=== PATIENT | female | born 1965 | race Caucasian/White ===

== ENCOUNTER 2022-03-27 11:50 | Outpatient (CLI) | payer MEDICAID | END 2022-03-27 11:51 | disposition critical access hospital (66) | LOC: EMS 11:50 | DX: R07.9 Chest pain, unspecified (principal) | CPT/HCPCS: A0425; A0427; A0999 ==

== ENCOUNTER 2022-03-27 12:08 | Emergency (ER) | payer MEDICAID ==
--- NOTE | 2022-03-27 12:25 | ED Physician Documentation ---
History of Present Illness - Stated complaint Stated Complaint: CP - Additonal information Additional information: 57-year-old female presents emergency department for evaluation of 1 week intermittent right-sided chest pain. She states that it comes at random times. Is not necessarily exertional. She noticed it very strongly this morning when she bent over to pick something up. She often has a tingling in her right arm and in her jaw when she has the sensation. Patient denies any previous cardiac history though she is obese, has a history of hypertension and type 2 diabetes. She also is a 2 pack/day smoker. 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 She is followed by primary care through [facility]. States that her diabetes is well managed. Review of Systems Constitutional: denies: Fever, Chills Nose: reports: Reviewed and negative Throat: reports: Reviewed and negative Cardiac: reports: Chest pain / pressure, Palpitations. denies: Pedal edema, Calf pain Respiratory: reports: Reviewed and negative GI: reports: Reviewed and negative : reports: Reviewed and negative Skin: reports: Reviewed and negative PD PAST MEDICAL HISTORY - Allergies Allergies/Adverse Reactions: Allergies Allergy/AdvReac Type Severity Reaction Status Date / Time No Known Drug Allergies Allergy Verified 03/27/22 12:15 PD ED PE NORMAL - General General: Alert and oriented X 3, No acute distress. No: Well developed/nourished (Morbidly obese) - HEENT HEENT: Atraumatic, Moist mucous membranes - Neck Neck: Supple, no meningeal sign, No adenopathy - Cardiac Cardiac: RRR, No murmur, Strong equal pulses - Respiratory Respiratory: No respiratory distress. 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 Eye Opening: Spontaneous Motor: Obeys Commands Verbal: Oriented GCS Score: 15 - Psych Psych: Normal mood Results - Vitals Vitals: Vital Signs - 24 hr 03/27/22 03/27/22 12:16 12:51 Temperature 37.9 C Heart Rate 101 H 98 Respiratory 18 19 Rate Blood Pressure 151/77 H 140/98 H O2 Saturation 92 93 Oxygen O2 Source Room air - EKG (time done) 1238 Rate: Rate (enter#) (100) Rhythm: NSR [place]: Normal Intervals: Normal [place] QRS: Normal Ischemia: Normal ST segments Compare to prior EKG: Old EKG unavailable Computer interpretation: Agree with computer - Labs Labs: Laboratory Tests 03/27/22 03/27/22 03/27/22 12:25 12:25 12:25 WBC 11.8 H RBC 5.41 H Hgb 14.9 Hct 47.3 H MCV 87.4 MCH 27.5 MCHC 31.5 L RDW 14.5 Plt Count 316 MPV 8.2 Neut # (Auto) 6.9 H Lymph # (Auto) 3.7 H [place] # (Auto) 0.9 Eos # (Auto) 0.2 Baso # (Auto) 0.1 Absolute Nucleated RBC 0.00 Nucleated RBC % 0.0 Sodium 139 Potassium 3.8 Chloride 100 L Carbon Dioxide 29 Anion Gap 10.0 BUN 18 Creatinine 0.7 Estimated GFR (MDRD) 87 L Glucose 105 H POC Whole Bld Glucose Calcium 9.3 Total Bilirubin 0.4 AST 20 ALT 33 Alkaline Phosphatase 102 Troponin I High Sens 4.4 Total Protein 7.6 Albumin 3.7 Globulin 3.9 Albumin/Globulin Ratio 0.9 L Lipase 36 03/27/22 13:00 WBC RBC Hgb Hct MCV MCH MCHC RDW Plt Count MPV Neut # (Auto) Lymph # (Auto) [place] # (Auto) Eos # (Auto) Baso # (Auto) Absolute Nucleated RBC Nucleated RBC % Sodium Potassium Chloride Carbon Dioxide Anion Gap BUN Creatinine Estimated GFR (MDRD) Glucose POC Whole Bld Glucose 85 Calcium Total Bilirubin AST ALT Alkaline Phosphatase Troponin I High Sens Total Protein Albumin Globulin Albumin/Globulin Ratio Lipase - Rads (name of study) cxr Radiology: Final report received (No acute cardiopulmonary process) PD MEDICAL DECISION MAKING - ED course Complexity details: reviewed results, re-evaluated patient, considered differential, d/w patient ED course: 57-year-old female presents emergency department for evaluation of intermittent chest pain has been present for about the last week. Mainly right-sided with radiation to the arm and jaw. She describes it as a sharp sensation. She reports that she has been under an inordinate amount of stress over the last week. However she has significant cardiac risk factors include morbid obesity, hypertension, diabetes as well as a 2 pack/day tobacco habit. Her EKG today in the emergency department was nonischemic. High-sensitivity troponin was negative. Her CBC and electrolytes were without acute worrisome findings. By Wells criteria she is low risk for PE thus we deferred other testing or imaging associated with this. Room air saturations are 99%. I discussed with patient that given her significant risk factors it would be important to follow-up closely with her primary care doctor to obtain referral for outpatient cardiac testing that could include a stress test and/or echocardiogram. Emergent return precautions as well as lifestyle modifications were discussed Departure - Departure Disposition: Home, Self Care Clinical Impression: Chest pain Qualifiers: Chest pain type: unspecified Qualified Code(s): R07.9 - Chest pain, unspecified Condition: Stable Record reviewed to determine appropriate education?: Yes Instructions: ED Heart Disease Risk Factors, ED Chest Pain Atypical Unkn Cause Comments: Terri you are seen today in the emergency department because intermittently over the last week you been having some right-sided chest pain that you described as sharp as well as some tingling in your arm. Today in the emergency department your CBC and electrolytes as well as your EKG and chest x-ray did not show any worrisome findings. However you do have some significant risk factors for coronary artery disease and I would make the recommendation that your primary care doctor make an urgent referral to cardiology to obtain a stress test at a minimum. You think that stress could be a cause of your chest pain and though anxiety can cause chest pain that is typically a diagnosis of exclusion. It does not appear that you have any broken ribs or rib strain. There is nothing to suggest a pleural effusion on your chest x-ray. Continue to take your usual prescribed medications. If at any point you develop sudden severe or different chest pain, have any fainting episodes uncontrolled nausea or vomiting then you should return immediately to the ER for second evaluation.
[2022-03-27 12:31] LABS: BASOPHILS # (AUTO) 0.1 10^3/uL (0.0-0.1); BASOPHILS % (AUTO) 0.7 %; EOSINOPHILS # (AUTO) 0.2 10^3/uL (0.0-0.7); EOSINOPHILS % (AUTO) 1.8 %; HCT - HEMATOCRIT 47.3 % (37.0-47.0); HGB - HEMOGLOBIN 14.9 g/dL (12.0-16.0); LYMPHOCYTES # (AUTO) 3.7 10^3/uL (1.5-3.5); LYMPHOCYTES % (AUTO) 31.2 %; MEAN CORPUSCULAR HEMOGLOBIN 27.5 pg (27.0-31.0); MEAN CORPUSCULAR HGB CONC 31.5 g/dL (32.0-36.0); MEAN CORPUSCULAR VOLUME 87.4 fL (81.0-99.0); MEAN PLATELET VOLUME 8.2 fL (7.9-10.8); MONOCYTES # (AUTO) 0.9 10^3/uL (0.0-1.0); MONOCYTES % (AUTO) 7.2 %; NEUTROPHILS # (AUTO) 6.9 10^3/uL (1.5-6.6); NEUTROPHILS % (AUTO) 58.7 %; PLT - PLATELET COUNT 316 10^3/uL (130-450); RED BLOOD COUNT 5.41 10^6/uL (4.20-5.40); RED CELL DISTRIBUTION WIDTH 14.5 % (12.0-15.0); WHITE BLOOD COUNT 11.8 x10^3/uL (4.8-10.8)
--- NOTE | 2022-03-27 12:48 | XRAY Report ---
PROCEDURE: Chest 1 View X-Ray INDICATIONS: Chest Pain TECHNIQUE: One view of the chest was acquired. COMPARISON: None FINDINGS: Surgical changes and devices: None. Lungs and pleura: No pleural effusions or pneumothorax. Lungs are clear. Mediastinum: Mediastinal contours appear normal. Heart size is normal. Bones and chest wall: No suspicious bony lesions. Overlying soft tissues appear unremarkable. IMPRESSION: No acute pulmonary process. Reviewed by: Zaida Gibson MD on 03/27/2022 12:47 PM PDT Approved by: Zaida Gibson MD on 03/27/2022 12:47 PM PDT Station ID: [id number]
[2022-03-27 12:51] VITALS: BP 140/98
[2022-03-27 12:55] LABS: ALBUMIN 3.7 g/dL (3.2-5.5); ALBUMIN/GLOBULIN RATIO 0.9 (1.0-2.2); BILIRUBIN,TOTAL 0.4 mg/dL (0.2-1.0); CREATININE 0.7 mg/dL (0.4-1.0); TOTAL PROTEIN 7.6 g/dL (6.7-8.2)
[2022-03-27 13:18] LABS: CALCIUM 9.3 mg/dL (8.5-10.3); POTASSIUM 3.8 mmol/L (3.5-5.0)
== END 2022-03-27 14:02 | disposition home or self-care (01) ==
LOC: ED 12:08
DX: R07.9 Chest pain, unspecified (principal)
CPT/HCPCS: 36415; 80053; 83690; 84484; 85025; 93005; 99283; 99284

== ENCOUNTER 2023-07-20 13:30 | Outpatient (CLI) | payer BC ==
[2023-07-20 17:47] LABS: BASOPHILS # (AUTO) 0.1 10^3/uL (0.0-0.1); BASOPHILS % (AUTO) 0.6 %; EOSINOPHILS # (AUTO) 0.1 10^3/uL (0.0-0.7); EOSINOPHILS % (AUTO) 1.2 %; HCT - HEMATOCRIT 47.4 % (37.0-47.0); HGB - HEMOGLOBIN 14.7 g/dL (12.0-16.0); LYMPHOCYTES # (AUTO) 2.8 10^3/uL (1.5-3.5); MEAN CORPUSCULAR HEMOGLOBIN 27.5 pg (27.0-31.0); MEAN CORPUSCULAR VOLUME 88.6 fL (81.0-99.0); MEAN PLATELET VOLUME 8.7 fL (7.9-10.8); MONOCYTES # (AUTO) 0.7 10^3/uL (0.0-1.0); MONOCYTES % (AUTO) 6.1 %; NEUTROPHILS # (AUTO) 7.5 10^3/uL (1.5-6.6); NEUTROPHILS % (AUTO) 66.4 %; PLT - PLATELET COUNT 337 10^3/uL (130-450); RED BLOOD COUNT 5.35 10^6/uL (4.20-5.40); WHITE BLOOD COUNT 11.3 x10^3/uL (4.8-10.8)
[2023-07-20 18:07] LABS: CRP - C-REACTIVE PROTEIN 1.1 mg/dL (<0.5); URIC ACID 4.9 mg/dL (2.3-6.6)
== END 2023-07-20 13:45 | disposition home or self-care (01) ==
LOC: LAB.N 13:30
PROVIDERS: ATTEND Physician Assistant Medical
DX: M25.521 Pain in right elbow (principal)
CPT/HCPCS: 36415; 84550; 85025; 86140

== ENCOUNTER 2023-11-27 19:48 | Emergency (ER) | payer BC ==
[2023-11-27 20:06] VITALS: BP 140/85; O2SAT 95
--- NOTE | 2023-11-27 20:06 | ED Physician Documentation ---
History of Present Illness - Stated complaint Stated Complaint: RT LEG SWELLING - Chief complaint Chief Complaint: Ext Problem - History obtained from History obtained from: Patient - Additonal information Additional information: 58-year-old woman with diabetes and COPD has had a weeks worth of increasing pain redness and swelling about the right ankle. There was no injury. She said she went to her doctor and they did labs which were only notable for an elevated A1c around 8. There was no specific diagnosis given but she said it is much redder now than it was then. 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: No - Immunizations Immunizations are current?: Yes - POLST Patient has POLST: No PD ED PE NORMAL - Vitals Vital signs reviewed: Yes - General General: Alert and oriented X 3, No acute distress - Derm Derm: Normal color, Warm and dry - Extremities Extremities: Other (She has cellulitis around the right ankle. No crepitance. No limited range of motion at the ankle. Good pedal pulses.) - Neuro Neuro: Alert and oriented X 3, Normal speech Results - Vitals Vitals: Vital Signs - 24 hr 11/27/23 19:52 Temperature 36.1 C L Heart Rate 105 H Respiratory 16 Rate Blood Pressure 140/85 H O2 Saturation 95 Oxygen O2 Source Room air PD Medical Decision Making - ED course ED course: I recommended an ultrasound to rule out blood clot although it looks more like cellulitis. She declined and would just like to start antibiotics. Departure - Departure Disposition: 01 Home, Self Care Clinical Impression: Cellulitis Qualifiers: Site of cellulitis: extremity Site of cellulitis of extremity: lower extremity Laterality: right Qualified Code(s): L03.115 - Cellulitis of right lower limb Condition: Good Record reviewed to determine appropriate education?: Yes Instructions: Cellulitis Dc Prescriptions: cephALEXin [Keflex] 500 mg PO Q6H #28 cap Comments: I sent your prescription electronically to the [facility] in [place]. Call your doctor to arrange a follow-up appointment, make the next available appointment. In the interim, return anytime if worse or if new symptoms develop.
[2023-11-27] MEDS: CEPHALEXIN 250 MG Prepack 8 CAP BOTTLE PO STA (20:18)
== END 2023-11-27 20:27 | disposition home or self-care (01) ==
LOC: ED 19:48
DX: L03.115 Cellulitis of right lower limb (principal)
CPT/HCPCS: 99282; 99283

== ENCOUNTER 2023-12-30 22:14 | Outpatient (CLI) | payer BC | END 2023-12-30 22:15 | disposition critical access hospital (66) | LOC: EMS 22:14 | DX: F41.9 Anxiety disorder, unspecified (principal); R06.02 Shortness of breath | CPT/HCPCS: A0425; A0429 ==

== ENCOUNTER 2023-12-30 22:32 | Emergency (ER) | payer BC ==
--- NOTE | 2023-12-30 22:57 | ED Physician Documentation ---
PD HPI CHEST PAIN - Stated complaint Stated Complaint: SOA/ANXIETY - Chief complaint Chief Complaint: Cardiac - History obtained from History obtained from: Patient - History of Present Illness Timing - onset: How many hours ago (has had pain right parastenal area intermittent through day and then worse/consistent the past few hours.), Today Timing - onset during: Rest, Light activity Timing - duration: Hours Timing - details: Gradual onset, Still present, Waxing and waning Quality: Sharp, Stabbing, Pain Location: Substernal, Right chest Radiation: No: Neck, Back, Abdominal Improved by: No: Rest Worsened by: Inspiration, Movement, Palpation Associated symptoms: Nausea, Cough (baseline smoking cough which pt states has not changed recently.). No: Shortness of air, Vomiting Review of Systems Constitutional: denies: Fever Nose: denies: Rhinorrhea / runny nose, Congestion Throat: denies: Sore throat Cardiac: reports: Chest pain / pressure (sharp pain focally to right parasternal area.). 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 : None HEENT: None Psych: Bipolar disorder Musculoskeletal: None Derm: None - Past Surgical History Past Surgical History: Yes General: Cholecystectomy - Present Medications Home Medications: Ambulatory Orders Medication Instructions Recorded Confirmed Citalopram [CeleXA] 40 mg PO DAILY 12/30/23 12/30/23 Divalproex ER [Depakote ER] 750 mg PO BID 12/30/23 12/30/23 hydroCHLOROthiazide [Hydrodiuril] 25 mg PO HS 12/30/23 12/30/23 lamoTRIgine [Lamictal] 150 mg PO HS 12/30/23 12/30/23 lisinopriL [Lisinopril] 10 mg PO HS 12/30/23 12/30/23 metFORMIN [Glucophage] 1,000 mg PO BIDWM 12/30/23 12/30/23 HYDROcod/ACETAM 5/325 [[place] 5/325] 1 ea PO Q6H PRN #18 tablet 12/31/23 Meloxicam [Mobic] 7.5 mg PO BID 15 Days #30 tablet 12/31/23 - Allergies Allergies/Adverse Reactions: Allergies Allergy/AdvReac Type Severity Reaction Status Date / Time No Known Drug Allergies Allergy Verified 12/30/23 22:38 - Social History Does the pt smoke?: Yes Smoking Status: Current every day smoker Does the pt drink ETOH?: No Does the pt have substance abuse?: No - Immunizations Immunizations are current?: Yes - POLST Patient has POLST: No PD ED PE NORMAL - Vitals Vital signs reviewed: Yes - General General: Alert and oriented X 3, Well developed/nourished, Other (anxious more than in pain. ) - Neck Neck: Supple, no meningeal sign, No adenopathy - Cardiac Cardiac: RRR, No murmur - Respiratory Respiratory: No respiratory distress, Other (right parasternal chest tenderness without rash nor sores. ). No: Clear bilaterally (diffuse mild wheezing without work of breathing. Pt states she would use her MDI with this. Offered MDI/neb treatment here. ) - Abdomen Abdomen: Soft, Non tender - Derm Derm: Normal color, Warm and dry - Extremities Extremities: No tenderness to palpate, Normal ROM s pain, No edema, No calf tenderness / cord - Neuro Neuro: Alert and oriented X 3, No motor deficit, Normal speech Results - Vitals Vitals: Vital Signs - 24 hr 12/30/23 12/31/23 22:39 00:24 Temperature 36.8 C 36.3 C L Heart Rate 100 88 Respiratory 16 16 Rate Blood Pressure 154/79 H 147/69 H O2 Saturation 91 L 93 Oxygen O2 Source Room air - EKG (time done) 22:53 EKG releavant findings:: EKG personally interpreted by author of this note. Relevant findings are: Rate: Rate (enter#) (105) Rhythm: Sinus tachycardia [place]: Normal Intervals: Normal DC QRS: Normal Ischemia: Normal ST segments. No: ST elevation c/w ischemia, ST depression Compare to prior EKG: Old EKG unavailable - Labs Labs: Laboratory Tests 12/30/23 12/30/23 22:53 22:53 WBC 12.9 H RBC 5.59 H Hgb 15.3 Hct 49.1 H MCV 87.8 MCH 27.4 MCHC 31.2 L RDW 14.0 Plt Count 320 MPV 8.7 Neut # (Auto) 8.4 H Lymph # (Auto) 3.4 [place] # (Auto) 0.9 Eos # (Auto) 0.2 Baso # (Auto) 0.1 Absolute Nucleated RBC 0.00 Nucleated RBC % 0.0 Sodium 134 L Potassium 3.7 Chloride 95 L Carbon Dioxide 31 Anion Gap 8.0 BUN 16 Creatinine 0.9 Estimated GFR (MDRD) 65 L Glucose 138 H Calcium 9.9 Total Bilirubin 0.5 AST 40 ALT 56 Alkaline Phosphatase 91 Troponin I High Sens 4.4 Total Protein 7.8 Albumin 4.1 Globulin 3.7 Albumin/Globulin Ratio 1.1 Lipase 18 - Rads (name of study) chest xray Relevant Findings:: Prelim report reviewed (no acute process), EMP independent interpretation of test PD Medical Decision Making - ED course Complexity details: reviewed results (ECG, CXR, Troponin re negative. PERC negative. Has chest wall tenderness at costochondral area where she is having pain. I feel low risk for ACS or other more serious process. Can treat with NSAIDs. ), re-evaluated patient (pt was to get albuterol and NSAID, pain med, but she got anxious to leave and declined them. Suspicion she needed to go out for a cigarette but she did not say. She was at discharging time and got Rx/instructions, just left before starting meds. ), considered differential (focal pain right chestwall with tenderness. Can get basic ECG, CXR, labs, and trop. If negative, with pain having been several hours, would presume stop workup. Does not sound exertional/ischemic in that sense of supporting need for stress testing, etc. ), d/w patient Departure - Departure Disposition: 01 Home, Self Care Clinical Impression: Anterior chest wall pain, COPD (chronic obstructive pulmonary disease), Wheezing, Edema of both legs Condition: Stable Record reviewed to determine appropriate education?: Yes Instructions: ED Chest Pain Costochondritis, ED Edema Legs Bilateral Prescriptions: Meloxicam [Mobic] 7.5 mg PO BID 15 Days #30 tablet HYDROcod/ACETAM 5/325 [[place] 5/325] 1 ea PO Q6H PRN #18 tablet PRN Reason: Pain Comments: Your chest x-ray does not show any pneumonia, fluid around the lungs, collapsed lung/pneumothorax nor any obvious tumors. Your EKG does not show any injury pattern and a blood test called troponin which is a marker for heart muscle injury is negative. You do have tenderness to the chest wall in that area which would suggest musculoskeletal cause for the pain. You can get inflammation through the cartilage for various reasons. You were wheezy here and I would certainly suggest you continuing your albuterol inhaler regularly 4 times a day for several days and as needed for wheezing. We can prescribe you a anti-inflammatory called meloxicam which is only needed to be taken twice daily so is a little bit easier. Take it with food to help with the pains in the chest and would help in the knees as well. To that add Tylenol/acetaminophen 500 to 650 mg 4 times daily to help with pain as well. I did prescribe a short-term prescription for hydrocodone pain medicine to use periodically if needed for worse pain. Regarding swelling in your feet and pain in your foot, I would suggest elevating your legs and feet periodically through the day in the future, and using some mild compression socks that come up just below the knees to help with swelling generally. I sent your prescriptions to your preferred pharmacy. I am prescribing a short course of narcotic pain medication for you. These are potentially dangerous and addictive medications that should be used carefully. These medications may constipate you. Take an [id number] stool softener such as docusate twice daily with plenty of water while taking these medications. If you go 24 hours without a bowel movement, take [id number] MiraLAX, per package instructions. Do not drink or drive while taking these medications. If you received narcotic or sedating medications while in the emergency department do not drive for 24 hours. Store this medication in a safe, secure place and out of reach of children. It is a violation of federal law to give or sell this medication to another person or to use in a manner other than prescribed. The ED will not refill narcotic prescriptions, including prescriptions lost or stolen. You can dispose of unwanted medications at the [facility]'s office or at several pharmacies such as [facility]. Forms: PCP List Discharge Date/Time: 12/31/23 00:24
[2023-12-30 23:08] LABS: BASOPHILS # (AUTO) 0.1 10^3/uL (0.0-0.1); BASOPHILS % (AUTO) 0.4 %; EOSINOPHILS # (AUTO) 0.2 10^3/uL (0.0-0.7); EOSINOPHILS % (AUTO) 1.3 %; HCT - HEMATOCRIT 49.1 % (37.0-47.0); HGB - HEMOGLOBIN 15.3 g/dL (12.0-16.0); LYMPHOCYTES # (AUTO) 3.4 10^3/uL (1.5-3.5); LYMPHOCYTES % (AUTO) 25.9 %; MEAN CORPUSCULAR HEMOGLOBIN 27.4 pg (27.0-31.0); MEAN CORPUSCULAR HGB CONC 31.2 g/dL (32.0-36.0); MEAN CORPUSCULAR VOLUME 87.8 fL (81.0-99.0); MEAN PLATELET VOLUME 8.7 fL (7.9-10.8); MONOCYTES # (AUTO) 0.9 10^3/uL (0.0-1.0); MONOCYTES % (AUTO) 6.7 %; NEUTROPHILS # (AUTO) 8.4 10^3/uL (1.5-6.6); PLT - PLATELET COUNT 320 10^3/uL (130-450); RED BLOOD COUNT 5.59 10^6/uL (4.20-5.40); WHITE BLOOD COUNT 12.9 x10^3/uL (4.8-10.8)
[2023-12-30 23:27] LABS: ALBUMIN 4.1 g/dL (3.2-5.5); ALBUMIN/GLOBULIN RATIO 1.1 (1.0-2.2); BILIRUBIN,TOTAL 0.5 mg/dL (0.2-1.0); CALCIUM 9.9 mg/dL (8.5-10.3); CREATININE 0.9 mg/dL (0.6-1.3); POTASSIUM 3.7 mmol/L (3.5-4.5); TOTAL PROTEIN 7.8 g/dL (6.4-8.9)
[2023-12-30 23:29] LABS: TROPONIN I HIGH SENSITIVITY 4.4 ng/L (2.3-14.8)
[2023-12-31] MEDS ORDERED: ALBUTEROL NEB 2.5 MG/3 ML INH ONE (00:04)
[2023-12-31] MEDS: ALBUTEROL NEB 2.5 MG/3 ML INH STA (00:15)
[2023-12-31] MEDS: dexAMETHasone 4 MG TABLET PO STA (00:17)
[2023-12-31] MEDS: KETOROLAC 15 MG/ML VIAL IVP STA (00:17)
[2023-12-31] MEDS: HYDROmorphone 0.5 MG/0.5 ML SYRINGE IVP STA (00:23)
--- NOTE | 2023-12-31 00:28 | XRAY Report ---
PROCEDURE: Chest 1V INDICATIONS: Chest Pain TECHNIQUE: One view of the chest was acquired. COMPARISON: CXR 03/27/2022. FINDINGS: Surgical changes and devices: None. Lungs and pleura: No pleural effusions or pneumothorax. Lungs are clear. Mediastinum: Mediastinal contours appear normal. Heart size is normal. Bones and chest wall: No suspicious bony lesions. Overlying soft tissues appear unremarkable. IMPRESSION: No acute cardiopulmonary process. Reviewed by: Jamie Ocasio MD on 12/31/2023 12:27 AM PDT Approved by: Jamie Ocasio MD on 12/31/2023 12:27 AM PDT Station ID: [id number]
[2023-12-31 00:39] VITALS: BP 147/69; O2SAT 93
== END 2023-12-31 00:24 | disposition home or self-care (01) ==
LOC: EDUNIT# → ED 22:32
DX: J44.9 Chronic obstructive pulmonary disease, unspecified (principal); R07.89 Other chest pain; R06.2 Wheezing; R60.0 Localized edema; I10 Essential (primary) hypertension; E78.00 Pure hypercholesterolemia, unspecified; E11.9 Type 2 diabetes mellitus without complications; F17.200 Nicotine dependence, unspecified, uncomplicated; Z79.84 Long term (current) use of oral hypoglycemic drugs; Z79.899 Other long term (current) drug therapy
CPT/HCPCS: 36415; 71045; 80053; 83690; 84484; 85025; 93005; 96374; 99284; J8540

== ENCOUNTER 2024-11-06 19:45 | Inpatient (IN) ==
--- NOTE | 2024-11-06 19:58 | ED Physician Documentation ---
History of Present Illness Stated complaint Stated Complaint: RESP DISTRESS - INTUBATED Chief complaint Chief Complaint: Critical Care History obtained from History obtained from: EMS Additonal information Additional information: History is obtained from EMS as the patient was intubated in the field. History of COPD. Reportedly increasing shortness of breath x 2 to 3 days. EMS states that she did not respond to nebulizer treatment with them. She was unable to speak, therefore they elected to intubate the patient in the field. Used rocuronium and ketamine. EMS states no reported history of fevers or recent illnesses. They are unclear if she still smokes, last visit she was smoking 2 packs a day. Review of Systems Status of ROS: unobtainable due to endotracheal tube Meds/Allgy Home Medications Ambulatory Orders Medication Instructions Recorded Confirmed divalproex 250 mg tablet,extended 250 mg PO QPM 11/07/24 release 24 hr hydrochlorothiazide 25 mg tablet 25 mg PO QPM 12/30/23 11/07/24 lamotrigine 150 mg tablet 150 mg PO QPM 12/30/2311/07 (Lamictal) lisinopril 10 mg tablet 10 mg PO QPM 12/30/23 metformin 500 mg tablet 1,000 mg PO BIDWM 12/30/23 0 11/07/24 albuterol sulfate 90 mcg/actuation 2 puff inhalation Q 4H PRN 11/07/24 11/07/24 aerosol inhaler shortness of breath or wheez ing citalopram 40 mg tablet 40 mg PO QPM 11/07/24 divalproex 500 mg tablet,extended 500 mg PO QPM 11/07/24 release 24 hr gabapentin 300 mg capsule 300 mg PO BID PRN pain 11/0711/07/24 glipizide 10 mg tablet, extended 10 mg PO QPM 11/07/24 11/07/24 release 24 hr tolterodine 2 mg capsule,extended 2 mg PO QPM 11/07/24 11/07/24 release 24 hr Allergies Allergies Allergy/AdvReac Type Severity Reaction Status Date / Time No Known Drug Allergies Allergy Verified 11/06/24 19:53 PFSH Active Problems All Active Problems (Updated 11/06/24 @ 22:13 by Kvng Marinelli DNP) UTI (urinary tract infection) (Acute) Acute and chronic respiratory failure with hypercapnia (Acute) Endotracheally intubated (Acute) Respiratory failure (Acute) COPD exacerbation (Acute) Medical History Medical History (Updated 11/06/24 @ 22:13 by Kvng Marinelli DNP) Diabetes Social History Social History Smoking Status: Current every day smoker Do you vape?: No Relationship: Child History of Abuse: No POLST Patient has POLST: No Exam Exam Vital Signs: Vital Signs x48h Temp Pulse Resp BP Pulse Ox 11/06/24 19:45 35.7 C L 85 16 89/56 L 98 Constitutional Intubated, paralyzed HENMT normocephalic, head/scalp atraumatic and oropharynx normal moist mucous membranes Neck/C-Spine visual inspection normal and trachea midline Respiratory Wheezing bilaterally, equal Cardiovascular normal heart rate noted and regular rhythm noted Gastrointestinal abdomen normal to inspection, abdomen soft to palpation, nontender to palpation and nondistended Genitourinary no CVA tenderness Extremities no edema Neurology Intubated Psychiatry Intubated Skin skin color normal Results Vitals Vitals: Vital Signs - 24 hr 11/06/24 19:45 11/06/24 19:50 11/06/24 19:53 Temperature 35.7 C L Temperature Source Temporal Artery Scan Pulse Rate 85 85 Respiratory Rate 16 17 Blood Pressure 89/56 L 89/56 L O2 Saturation 98 98 Oxygen Delivery Method Mechanical Ventilator O2 Source Ambu bag Mechanical ventilator Fraction of Inspired Oxygen (FIO2) Pain Intensity 0 11/06/24 20:00 11/06/24 20:04 11/06/24 20:08 Temperature Temperature Source Pulse Rate 85 81 85 Respiratory Rate 14 12 16 Blood Pressure 102/61 129/77 O2 Saturation 97 98 98 Oxygen Delivery Method O2 Source Mechanical ventilator Mechanical ventilator Mechanical ventilator Fraction of Inspired Oxygen (FIO2) Pain Intensity 11/06/24 20:10 11/06/24 20:13 11/06/24 20:18 Temperature Temperature Source Pulse Rate 82 83 84 Respiratory Rate 16 16 16 Blood Pressure 126/74 123/83 O2 Saturation 98 100 99 Oxygen Delivery Method O2 Source Mechanical ventilator Mechanical ventilator Mechanical ventilator Fraction of Inspired Oxygen (FIO2) Pain Intensity 11/06/24 20:19 11/06/24 20:23 11/06/24 20:28 Temperature Temperature Source Pulse Rate 74 80 78 Respiratory Rate 20 16 16 Blood Pressure 99/63 107/73 121/70 O2 Saturation 98 99 99 Oxygen Delivery Method O2 Source Mechanical ventilator Mechanical ventilator Mechanical ventilator Fraction of Inspired Oxygen (FIO2) Pain Intensity 11/06/24 20:30 11/06/24 20:50 11/06/24 20:54 Temperature Temperature Source Pulse Rate 76 74 74 Respiratory Rate 16 16 Blood Pressure 109/67 O2 Saturation 99 98 Oxygen Delivery Method O2 Source Mechanical ventilator Mechanical ventilator Fraction of Inspired Oxygen (FIO2) 100 Pain Intensity 11/06/24 20:59 11/06/24 21:00 11/06/24 21:04 Temperature Temperature Source Pulse Rate 73 78 74 Respiratory Rate 20 20 Blood Pressure 94/66 98/64 O2 Saturation 100 98 Oxygen Delivery Method O2 Source Mechanical ventilator Mechanical ventilator Fraction of Inspired Oxygen (FIO2) 70 Pain Intensity 11/06/24 21:05 11/06/24 21:09 11/06/24 21:13 Temperature Temperature Source Pulse Rate 74 73 73 Respiratory Rate 20 20 20 Blood Pressure 97/62 99/68 O2 Saturation 100 96 99 Oxygen Delivery Method O2 Source Mechanical ventilator Mechanical ventilator Mechanical ventilator Fraction of Inspired Oxygen (FIO2) Pain Intensity 11/06/24 21:25 Temperature 36.2 C L Temperature Source Core Pulse Rate 73 Respiratory Rate 20 Blood Pressure O2 Saturation 98 Oxygen Delivery Method O2 Source Mechanical ventilator Fraction of Inspired Oxygen (FIO2) Pain Intensity Oxygen O2 Source Mechanical ventilator Labs Labs: Microbiology 11/06/24 20:16 Urine Culture - Preliminary Urine,Catheterized CULTURE IN PROGRESS. RESULTS TO FOLLOW. Laboratory Tests 11/06/24 11/06/24 11/06/24 20:02 20:16 20:45 WBC 10.5 RBC 5.42 H Hgb 14.3 Hct 46.5 MCV 85.8 MCH 26.4 L MCHC 30.8 L RDW 15.4 H Plt Count 339 MPV 7.9 Neut # (Auto) 8.1 H Lymph # (Auto) 1.2 L Lake # (Auto) 0.7 Eos # (Auto) 0.3 Baso # (Auto) 0.1 Absolute Nucleated RBC 0.02 Nucleated RBC % 0.2 PT 14.6 H INR 1.3 H APTT 24.0 L Bld Gas Analysis Time Sample Site ABG pH ABG pCO2 ABG pO2 ABG HCO3 ABG Total CO2 ABG O2 Saturation ABG Base Excess Finn Test Respiration Rate O2 Delivery Device Vent Mode FiO2 PEEP Sodium 130 L Potassium 4.1 Chloride 88 L Carbon Dioxide 33 H Anion Gap 9.0 BUN 35 H Creatinine 0.7 Estimated GFR (MDRD) 86 L Glucose 170 H Lactic Acid 1.1 Calcium 9.1 Total Bilirubin 0.8 AST 14 ALT 23 Alkaline Phosphatase 144 H B-Natriuretic Peptide 683 H Total Protein 7.5 Albumin 3.3 Globulin 4.2 Albumin/Globulin Ratio 0.8 L Lipase 18 Procalcitonin Immunoas 0.25 Urine Color DARK YELLOW Urine Clarity HAZY Urine pH 6.0 Ur Specific [place] >=1.030 H Urine Protein >=300 H Urine Glucose (UA) 100 H Urine Ketones TRACE Urine Occult Blood NEGATIVE Urine Nitrite POSITIVE H Urine Bilirubin MODERATE H Urine Urobilinogen >=8.0 H Ur Leukocyte Esterase NEGATIVE Urine RBC None Seen Urine WBC 0-3 Ur Squamous Epith Cells FEW Squamous Amorphous Sediment Rare Urine Bacteria Rare Urine Casts 11-25 Hyaline Casts Ur Microscopic Review INDICATED Urine Culture Comments INDICATED Nasal Adenovirus (PCR) NOT DETECTED Nasal B. parapertussis DNA (PCR) NOT DETECTED Nasal Coronavir 229E PCR NOT DETECTED Nasal Coronavir HKU1 PCR NOT DETECTED Nasal Coronavir NL63 PCR NOT DETECTED Nasal Coronavir OC43 PCR NOT DETECTED Nasal Enterovir/Rhinovir PCR NOT DETECTED Nasal Influenza B PCR NOT DETECTED Nasal Influenza A PCR NOT DETECTED Nasal Parainfluen 1 PCR NOT DETECTED Nasal Parainfluen 2 PCR NOT DETECTED Nasal Parainfluen 3 PCR NOT DETECTED Nasal Parainfluen 4 PCR NOT DETECTED Nasal RSV (PCR) NOT DETECTED Nasal B.pertussis DNA PCR NOT DETECTED Nasal C.pneumoniae (PCR) NOT DETECTED Marshal Human Metapneumo PCR NOT DETECTED Nasal M.pneumoniae (PCR) NOT DETECTED Nasal SARS-CoV-2 (PCR) NOT DETECTED 11/06/24 20:50 WBC RBC Hgb Hct MCV MCH MCHC RDW Plt Count MPV Neut # (Auto) Lymph # (Auto) Lake # (Auto) Eos # (Auto) Baso # (Auto) Absolute Nucleated RBC Nucleated RBC % PT INR APTT Bld Gas Analysis Time 2049 Sample Site RIGHT RADIAL ABG pH 7.43 ABG pCO2 55 H ABG pO2 259 H ABG HCO3 36.5 H ABG Total CO2 38.2 H ABG O2 Saturation 99 H ABG Base Excess 12.0 H Finn Test POSITIVE Respiration Rate 16 O2 Delivery Device VENTILATOR Vent Mode FiO2 100.00 PEEP 8 Sodium Potassium Chloride Carbon Dioxide Anion Gap BUN Creatinine Estimated GFR (MDRD) Glucose Lactic Acid Calcium Total Bilirubin AST ALT Alkaline Phosphatase B-Natriuretic Peptide Total Protein Albumin Globulin Albumin/Globulin Ratio Lipase Procalcitonin Immunoas Urine Color Urine Clarity Urine pH Ur Specific [place] Urine Protein Urine Glucose (UA) Urine Ketones Urine Occult Blood Urine Nitrite Urine Bilirubin Urine Urobilinogen Ur Leukocyte Esterase Urine RBC Urine WBC Ur Squamous Epith Cells Amorphous Sediment Urine Bacteria Urine Casts Ur Microscopic Review Urine Culture Comments Nasal Adenovirus (PCR) Nasal B. parapertussis DNA (PCR) Nasal Coronavir 229E PCR Nasal Coronavir HKU1 PCR Nasal Coronavir NL63 PCR Nasal Coronavir OC43 PCR Nasal Enterovir/Rhinovir PCR Nasal Influenza B PCR Nasal Influenza A PCR Nasal Parainfluen 1 PCR Nasal Parainfluen 2 PCR Nasal Parainfluen 3 PCR Nasal Parainfluen 4 PCR Nasal RSV (PCR) Nasal B.pertussis DNA PCR Nasal C.pneumoniae (PCR) Marshal Human Metapneumo PCR Nasal M.pneumoniae (PCR) Nasal SARS-CoV-2 (PCR) PD Medical Decision Making ED course Complexity details: reviewed results, re-evaluated patient, considered differential and d/w family ED course: 59-year-old female, history of COPD. Intubated by EMS prior to arrival. She was given steroids and nebulizer treatments and lying in the emergency department. Had thick mucus in the endotracheal tube that was suctioned. Started on antibiotics. Will admit the patient for COPD exacerbation with respiratory failure. Discussed the case with the hospitalist who accepts. Discussed the case with family as well. This document was made in part using voice recognition software. While efforts are made to proofread this document, sound alike and grammatical errors may occur. Critical Care Critical Care Provided: Yes Time(min): 45 Time Includes: Direct patient care, Review records, Reassess patient, Document care, Coordinate care and Medical consult Data interpretation: See progress note Procedures included in critical care time: See progress note Procedures excluded from critical care time: See progress note Discharge Plan Discharge Patient Disposition: [facility] DC/Xfer Condition: Serious Clinical Impression: COPD exacerbation, Respiratory failure, Endotracheally intubated Interventions: ED Admission Assessment Last Done: 11/06/24 22:25
--- NOTE | 2024-11-06 20:04 | XRAY Report ---
PROCEDURE: XR Chest for Line Placement INDICATIONS: post intubation TECHNIQUE: One view of the chest was acquired. COMPARISON: 12/30/2023. FINDINGS: Surgical changes and devices: Endotracheal tube with tip approximately 3.5 cm above the franco. Lungs and pleura: No pleural effusions or pneumothorax. Patchy diffuse bilateral pulmonary opacities. Mediastinum: Mediastinal contours appear normal. Heart size is normal. Bones and chest wall: No suspicious bony lesions. Overlying soft tissues appear unremarkable. IMPRESSION: Endotracheal tube with tip approximately 3.5 cm above the franco. Patchy diffuse bilateral pulmonary opacities. Reviewed by: Montana Sal MD on 11/06/2024 8:03 PM PDT Approved by: oMntana Sal MD on 11/06/2024 8:03 PM PDT Station ID: [id number]
[2024-11-06 20:08] LABS: BASOPHILS # (AUTO) 0.1 10^3/uL (0.0-0.1); BASOPHILS % (AUTO) 0.6 %; EOSINOPHILS # (AUTO) 0.3 10^3/uL (0.0-0.7); EOSINOPHILS % (AUTO) 2.6 %; HCT - HEMATOCRIT 46.5 % (37.0-47.0); HGB - HEMOGLOBIN 14.3 g/dL (12.0-16.0); LYMPHOCYTES # (AUTO) 1.2 10^3/uL (1.5-3.5); LYMPHOCYTES % (AUTO) 11.6 %; MEAN CORPUSCULAR HEMOGLOBIN 26.4 pg (27.0-31.0); MEAN CORPUSCULAR HGB CONC 30.8 g/dL (32.0-36.0); MEAN CORPUSCULAR VOLUME 85.8 fL (81.0-99.0); MEAN PLATELET VOLUME 7.9 fL (7.9-10.8); MONOCYTES # (AUTO) 0.7 10^3/uL (0.0-1.0); MONOCYTES % (AUTO) 6.5 %; NEUTROPHILS # (AUTO) 8.1 10^3/uL (1.5-6.6); NEUTROPHILS % (AUTO) 77.1 %; NRBC ABSOLUTE COUNT (AUTO) 0.02 x10^3/uL; NUCLEATED RED BLOOD CELLS AUTO 0.2 /100WBC; PLT - PLATELET COUNT 339 10^3/uL (130-450); RED BLOOD COUNT 5.42 10^6/uL (4.20-5.40); RED CELL DISTRIBUTION WIDTH 15.4 % (12.0-15.0); WHITE BLOOD COUNT 10.5 x10^3/uL (4.8-10.8)
[2024-11-06] MEDS: ALBUTEROL NEB 2.5 MG/3 ML INH STA (20:10)
[2024-11-06 20:20] LABS: INR 1.3 (0.8-1.2); PT - PROTHROMBIN TIME 14.6 secs (9.9-12.6)
[2024-11-06 20:28] LABS: ALBUMIN 3.3 g/dL (3.2-5.5); ALBUMIN/GLOBULIN RATIO 0.8 (1.0-2.2); BILIRUBIN,TOTAL 0.8 mg/dL (0.2-1.0); CALCIUM 9.1 mg/dL (8.5-10.3); CREATININE 0.7 mg/dL (0.6-1.3); POTASSIUM 4.1 mmol/L (3.5-4.5); TOTAL PROTEIN 7.5 g/dL (6.4-8.9)
[2024-11-06 20:28] LABS: BILIRUBIN,URINE MODERATE (NEGATIVE); GLUCOSE, URINE (UA) 100 mg/dL (NEGATIVE); KETONES,URINE (UA) TRACE mg/dL (NEGATIVE); LEUKOCYTE ESTERASE, URINE NEGATIVE (NEGATIVE); NITRITE,URINE POSITIVE (NEGATIVE); OCCULT BLOOD,URINE NEGATIVE (NEGATIVE); PROTEIN,URINE >=300 mg/dL (NEGATIVE); UROBILINOGEN,URINE >=8.0 E.U./dL (NORMAL)
[2024-11-06] MEDS: methylPREDNISolone SUCCINATE 125 MG/2 ML VIAL IVP STA (20:29)
[2024-11-06] MEDS: SODIUM CHLORIDE 0.9% 1,000 ML IV STA ×2 (20:29→20:30)
[2024-11-06] MEDS: cefTRIAXone 1 GM VIAL IVP STA (20:35)
[2024-11-06] MEDS: AZITHROMYCIN INJ 500 MG in SODIUM CHLORIDE 0.9% 250 ML IV STA (20:36)
[2024-11-06] MEDS: PROPOFOL 1000 MG/100 ML 1,000 MG/100 ML BOTTLE IV STA (20:40)
[2024-11-06 20:45] LABS: AMORPHOUS SEDIMENT,UR Rare /LPF; BACTERIA,URINE Rare /HPF (None Seen); CASTS, URINE 11-25 Hyaline Casts /LPF; CLARITY,URINE HAZY (CLEAR); RBC,URINE None Seen /HPF (0-5); SQUAMOUS EPITHELIAL CELL,UR FEW Squamous (<= Few); WBC,URINE 0-3 /HPF (0-5)
[2024-11-06 20:57] LABS: ABG HCO3 36.5 mmol/L (22.0-26.0); ABG OXYGEN SATURATION 99 % (95-98); ABG PCO2 55 mmHg (34-45); ABG PH 7.43 (7.35-7.45); ABG PO2 259 mmHg (83-108); ABG TCO2 38.2 mmol/L (21.0-29.0); ALLEN TEST POSITIVE
[2024-11-06 20:58] LABS: ABG RESPIRATORY RATE 16 b/min
--- NOTE | 2024-11-06 21:31 | HISTORY & PHYSICAL EXAMINATION ---
Chief Complaint Chief Complaint Chief Complaint: Dyspnea History of Present Illness Admitted From Admitted From:: Home History Obtained From History obtained from: Chart review History of Present Illness HPI Comment/Other: 59-year-old female history of COPD, Diabetes who still actively smokes presented by ambulance already intubated. She has been having dyspnea x 2 to 3 days. EMS attempted nebulizer treatment in the field, with no effect so she was intubated in the field. EMS states that she reported no fevers or recent illness. She has a smoking history as high as 2 packs a day. In the ER, chest x-ray confirmed tube placement with a ET tube 3.5 cm above the franco. It also showed patchy diffuse bilateral pulmonary opacities. She has had copious secretions through her ET tube per RT. Lab work revealed hyponatremia at 130, elevated BNP at 683, WBC 10.5. UA indicative of UTI. ABG 7.4 3/55/259/30 6.5 on ventilator, rate 16, PC 30, FiO2 100, PEEP 8. Hospitalist was contacted for admission for Acute on chronic hypercapnic respiratory failure requiring intubation and ventilation Meds/Allgy Home Medications Ambulatory Orders Medication Instructions Recorded Confirmed citalopram 10 mg tablet 40 mg PO DAILY 12/30/23 08/09/18 divalproex 250 mg tablet,extended 750 mg PO BID 12/30/23 release 24 hr hydrochlorothiazide 25 mg tablet 25 mg PO HS 12/30/23 12/30/23 lamotrigine 150 mg tablet 150 mg PO HS 12/30/23 (Lamictal) lisinopril 10 mg tablet 10 mg PO HS 12/30/23 4 metformin 500 mg tablet 1,000 mg PO BIDWM 12/30/23 0 12/30/23 hydrocodone 5 mg-acetaminophen 325 1 ea PO Q6H PRN Tom n #18 tabs 12/31/23 mg tablet meloxicam 7.5 mg tablet 7.5 mg PO BID 15 days #30 ta bs 12/31/23 Allergies Allergies Allergy/AdvReac Type Severity Reaction Status Date / Time No Known Drug Allergies Allergy Verified 11/06/24 19:53 PFSH Active Problems All Active Problems (Updated 11/06/24 @ 22:13 by Kvng Marinelli DNP) UTI (urinary tract infection) (Acute) Acute and chronic respiratory failure with hypercapnia (Acute) Endotracheally intubated (Acute) Respiratory failure (Acute) COPD exacerbation (Acute) Medical History Medical History (Updated 11/06/24 @ 22:13 by Kvng Marinelli DNP) Diabetes Social History Social History Smoking Status: Current every day smoker Do you vape?: No Relationship: Child History of Abuse: No POLST Patient has POLST: No Review of Systems Status of ROS: unobtainable due to endotracheal tube (No family available for interview) Exam Exam Vital Signs: Vital Signs x48h Temp Pulse Resp BP Pulse Ox 11/06/24 21:25 36.2 C L 73 20 98 11/06/24 21:13 73 20 99/68 99 11/06/24 21:09 73 20 97/62 96 11/06/24 21:05 74 20 100 11/06/24 21:04 74 20 98/64 98 11/06/24 20:59 73 20 94/66 100 11/06/24 20:54 74 16 109/67 98 11/06/24 20:50 74 16 99 11/06/24 20:28 78 16 121/70 99 11/06/24 20:23 80 16 107/73 99 11/06/24 20:19 74 20 99/63 98 11/06/24 20:18 84 16 123/83 99 11/06/24 20:13 83 16 126/74 100 11/06/24 20:10 82 16 98 11/06/24 20:08 85 16 129/77 98 11/06/24 20:04 81 12 102/61 98 11/06/24 20:00 85 14 97 11/06/24 19:53 85 17 89/56 L 98 11/06/24 19:45 35.7 C L 85 16 89/56 L 98 Constitutional Obese female, sedated, ventilated [facility] normocephalic and head/scalp atraumatic Eyes Pinpoint pupils, equal and reactive Neck/C-Spine visual inspection normal Lymph no lymphadenopathy noted Chest inspection of chest normal Respiratory Coarse, Mechanical breath sounds with inspiratory and expiratory wheezes Cardiovascular normal heart rate noted and regular rhythm noted Gastrointestinal Protuberant abdomen, soft to palpation Extremities Pale, with borderline delayed cap refill. No edema, pulses intact Neurology Sedated on vent. Withdraws to painful stimulus Psychiatry Sedated on vent Conclusion/Plan Problem List (1) Acute and chronic respiratory failure with hypercapnia: Plan: Chest x-ray with diffuse patchy bilateral pulmonary opacities. RVP negative procalcitonin negative Respiratory failure is secondary to COPD exacerbation, manage as below Sedated on vent Sedation with fentanyl/propofol Restraints while intubated Insert OGT Protonix for PUD prophylaxis elevate HOB Avoid oversedation ABG as needed RT Vent bundle, secretion clearance, bronchodilator protocol ordered SBT per RT protocol (2) COPD exacerbation: Plan: ABG on presentation shows a resolving respiratory acidosis due to ventilator RT reports copious secretions, cultures have been ordered Solu-Medrol 40 mg every 6 hours for tonight Azithromycin 500 mg per NG x 3 days DuoNeb RT 4 times daily, as needed albuterol (3) UTI (urinary tract infection): Plan: UA shows UTI Rocephin 2 g IV push daily (4) Diabetes: Plan: Home med list includes metformin Placed on SSI A1c in a.m. Lab Results 11/06/24 20:02 11/06/24 20:02 Core Measures Anticipated LOS I expect patient to be DC'd or transferred within 96 hours.: Yes DVT/VTE - Prophylaxis VTE/DVT Prophylaxis med ordered at admit?: Yes
[2024-11-06 21:42] LABS: B. PARAPERTUSSIS- RESP PCR PAN NOT DETECTED; B. PERTUSSIS- RESP PCR PANEL NOT DETECTED; C. PNEUMONIAE- RESP PCR PANEL NOT DETECTED; CORONAVIRUS 229E-RESP PCR NOT DETECTED; CORONAVIRUS HKU1-RESP PCR NOT DETECTED; CORONAVIRUS NL63-RESP PCR NOT DETECTED; CORONAVIRUS OC43-RESP PCR NOT DETECTED; HUMAN METAPNEUMOVIRUS NOT DETECTED; INFLUENZA A- RESP PCR PANEL NOT DETECTED; INFLUENZA B - RESP PCR PANEL NOT DETECTED; M. PNEUMONIAE- RESP PCR PANEL NOT DETECTED; PARAINFLUENZA VIRUS 1 NOT DETECTED; PARAINFLUENZA VIRUS 2 NOT DETECTED; PARAINFLUENZA VIRUS 4 NOT DETECTED; RHINOVIRUS/ENTEROVIRUS NOT DETECTED; RSV- RESP PCR PANEL NOT DETECTED; SARS-CoV-2 -RESP PCR PANEL NOT DETECTED
[2024-11-06] MEDS: VECURONIUM 10 MG VIAL IVP STA (22:02)
--- OUTSIDE RECORDS SUMMARY | 2024-11-06 22:05 | EXTERNAL MEDICAL SUMMARY RPT | Continuity of Care Document ---
Author Organization [facility] Address [address] [place] [phone] Phone Results/Labs test date facility value unit notes Result panel 1 NRBC ABSOLUTE COUNT (AUTO) 2024-11-06 20:02 [employer] 0 .02 x10 3/ul (missing) BASOPHILS # (AUTO) 2024-11-06 20:02 [employer] 0.1 10 3/ul (missing) NUCLEATED RED BLOOD CELLS AUTO 2024-11-06 20:02 [employer] 0.2 /100wbc (missing) PROCALCITONIN 2024-11-06 20:02 [employer] 0.25 ng/m l Social History date description facility
[2024-11-06] MEDS ORDERED: ACETAMINOPHEN 325 MG TABLET PO PRN (22:08)
[2024-11-06] MEDS ORDERED: ONDANSETRON 4 MG/2 ML VIAL IVP PRN (22:08)
[2024-11-06] MEDS ORDERED: PROPOFOL 1000 MG/100 ML 100 ML IV SCH (22:08)
--- NOTE | 2024-11-06 22:31 | XRAY Report ---
PROCEDURE: XR Chest for Line Placement INDICATIONS: NG placement TECHNIQUE: One view of the chest was acquired. COMPARISON: None. FINDINGS: Surgical changes and devices: NG tube is present. The tip is off the inferior portion of the film, well below the diaphragm. Lungs and pleura: Patchy bilateral pulmonary opacities. No significant effusion. Mediastinum: Stable cardiomediastinal contour. Bones and chest wall: No change. IMPRESSION: Adequate placement of NG tube. Reviewed by: Cass Hampton MD on 11/06/2024 10:29 PM PDT Approved by: Cass Hampton MD on 11/06/2024 10:29 PM PDT Station ID: [id number]
[2024-11-07] MEDS: FAMOTIDINE 20 MG/2 ML VIAL IVP SCH (00:23)
[2024-11-07] MEDS: fentaNYL 2,500 MCG in SODIUM CHLORIDE 0.9% 200 ML IV SCH (00:23)
[2024-11-07] MEDS: PROPOFOL 1000 MG/100 ML 1,000 MG/100 ML BOTTLE IV SCH (01:40)
[2024-11-07] MEDS: INSULIN REGULAR, HUMAN 300 UNIT/3 ML PEN SUBQ SCH (01:41)
[2024-11-07] MEDS: methylPREDNISolone SUCCINATE 40 MG/ML VIAL IVP SCH (01:46)
[2024-11-07] MEDS: SODIUM CHLORIDE 0.9% 1,000 ML IV SCH ×2 (01:46→13:31)
[2024-11-07] MEDS: SODIUM CHLORIDE FLUSH 0.9% 10 ML SYRINGE IVP SCH (01:46)
[2024-11-07 04:34] LABS: BASOPHILS % (AUTO) 0.4 %; EOSINOPHILS # (AUTO) 0.2 10^3/uL (0.0-0.7); EOSINOPHILS % (AUTO) 1.3 %; HCT - HEMATOCRIT 43.1 % (37.0-47.0); HGB - HEMOGLOBIN 13.2 g/dL (12.0-16.0); LYMPHOCYTES # (AUTO) 1.3 10^3/uL (1.5-3.5); LYMPHOCYTES % (AUTO) 11.2 %; MEAN CORPUSCULAR HEMOGLOBIN 25.9 pg (27.0-31.0); MEAN CORPUSCULAR HGB CONC 30.6 g/dL (32.0-36.0); MEAN CORPUSCULAR VOLUME 84.7 fL (81.0-99.0); MEAN PLATELET VOLUME 8.3 fL (7.9-10.8); MONOCYTES # (AUTO) 0.6 10^3/uL (0.0-1.0); MONOCYTES % (AUTO) 5.2 %; NEUTROPHILS # (AUTO) 9.1 10^3/uL (1.5-6.6); NEUTROPHILS % (AUTO) 80.7 %; NRBC ABSOLUTE COUNT (AUTO) 0.02 x10^3/uL; NUCLEATED RED BLOOD CELLS AUTO 0.2 /100WBC; PLT - PLATELET COUNT 322 10^3/uL (130-450); RED BLOOD COUNT 5.09 10^6/uL (4.20-5.40); RED CELL DISTRIBUTION WIDTH 15.3 % (12.0-15.0); WHITE BLOOD COUNT 11.2 x10^3/uL (4.8-10.8)
[2024-11-07 04:36] LABS: CALCIUM, IONIZED 1.11 mmol/L (1.09-1.30); VBG PH 7.547 (7.31-7.41)
[2024-11-07 04:57] LABS: CALCIUM 8.8 mg/dL (8.5-10.3); CREATININE 0.6 mg/dL (0.6-1.3); MAGNESIUM 2.3 mg/dL (1.7-2.3); PHOSPHORUS 3.2 mg/dL (2.5-5.0); POTASSIUM 4.1 mmol/L (3.5-4.5)
[2024-11-07] MEDS: SODIUM CHLORIDE FLUSH 0.9% 10 ML SYRINGE IVP PRN (06:23)
[2024-11-07] MEDS: PANTOPRAZOLE 40 MG VIAL IVP SCH (06:23)
[2024-11-07 07:21] LABS: ESTIMATED AVERAGE GLUCOSE 146 mg/dL (70-100); HEMOGLOBIN A1c% 6.7 % (4.27-6.07)
[2024-11-07] MEDS: IPRATROPIUM/ALBUTEROL 3 ML NEB INH SCH (07:30)
[2024-11-07] MEDS: cefTRIAXone 2 GM VIAL IVP SCH (08:58)
[2024-11-07] MEDS: AZITHROMYCIN 250 MG TABLET PO SCH (08:58)
[2024-11-07] MEDS: CHLORHEXIDINE GLUCONATE 15 ML UDC PO SCH (08:59)
[2024-11-07] MEDS: ENOXAPARIN 40 MG/0.4 ML SYRINGE SUBQ SCH ×2 (08:59→20:29)
[2024-11-07 09:41] LABS: ABG PH 7.29 (7.35-7.45)
[2024-11-07 09:42] LABS: ABG BASE EXCESS 8.3 mmol/L (-2.0-3.0); ABG HCO3 35.1 mmol/L (22.0-26.0); ABG OXYGEN SATURATION 95 % (95-98); ABG PO2 93 mmHg (83-108); ABG TCO2 37.3 mmol/L (21.0-29.0); ALLEN TEST POSITIVE
[2024-11-07 09:43] LABS: ABG MODE OF VENTILATION ASSIST/CONTROL; ABG RESPIRATORY RATE 20 b/min
[2024-11-07 09:49] LABS: ABG PCO2 73 mmHg (34-45)
[2024-11-07 11:45] VITALS: BP 92/54
[2024-11-07] MEDS ORDERED: BACITRACIN ZINC OINT 1 PACKET TOP PRN (14:57)
[2024-11-07 15:02] LABS: ABG HCO3 34.8 mmol/L (22.0-26.0); ABG OXYGEN SATURATION 95 % (95-98); ABG PCO2 35 mmHg (34-45); ABG PO2 71 mmHg (83-108); ABG TCO2 35.8 mmol/L (21.0-29.0); ALLEN TEST POSITIVE
[2024-11-07 15:03] LABS: ABG MODE OF VENTILATION ASSIST/CONTROL; ABG RESPIRATORY RATE 24 b/min
[2024-11-07] MEDS: SCOPOLAMINE PATCH TOP SCH (15:36)
[2024-11-07] MEDS: NYSTATIN POWDER 15 GM TOP SCH (16:44)
--- NOTE | 2024-11-07 17:38 | PHARMACY PROGRESS NOTE ---
Best Possible Medication History Admit Date and Time: 11/06/24 2142 Home Medications Medication Instructions Recorded Confirmed Type divalproex 250 mg tablet,extended 250 mg PO QPM 11/07/24 History release 24 hr hydrochlorothiazide 25 mg tablet 25 mg PO QPM 12/30/23 11/07/24 History lamotrigine 150 mg tablet 150 mg PO QPM 12/30/2311/07 History (Lamictal) lisinopril 10 mg tablet 10 mg PO QPM 12/30/23 History metformin 500 mg tablet 1,000 mg PO BIDWM 12/30/23 0 11/07/24 History albuterol sulfate 90 mcg/actuation 2 puff inhalation Q 4H PRN 11/07/24 11/07/24 History aerosol inhaler shortness of breath or wheez ing citalopram 40 mg tablet 40 mg PO QPM 11/07/24 History divalproex 500 mg tablet,extended 500 mg PO QPM 11/07/24 History release 24 hr gabapentin 300 mg capsule 300 mg PO BID PRN pain 11/0711/07/24 History glipizide 10 mg tablet, extended 10 mg PO QPM 11/07/24 11/07/24 History release 24 hr tolterodine 2 mg capsule,extended 2 mg PO QPM 11/07/24 11/07/24 History release 24 hr Processed by: Pharmacy Medications reviewed in ED?: No Medication History completed: Yes Patient Interview: Pt unable to participate Secondary Source(s): Spouse/Significant other and Insurance records [facility] Statement: As the person ultimately responsible for medication therapy, providers are able to order a medication from an existing home medication list in [facility] via the "Reconcile Routine" prior to Confirmation of that medication by support representative. Such practice is discouraged except when the physician, in their clinical judgment, deems that a medical need exists for a medication without regard to previous use.
[2024-11-07] MEDS: KETOROLAC 15 MG/ML VIAL IVP PRN (18:13)
--- NOTE | 2024-11-07 19:02 | PROVIDER PROGRESS NOTE ---
Subjective Prog Note Date Prog Note Date: 11/07/24 Prog Note Time: 18:59 Subjective Subjective: c/o sore throat, is tearful Current Medications Current Medications Current Medications: Current Medications Generic Name Dose Route Start Last Admin Trade Name Freq PRN Reason Stop Dose Admin Acetaminophen 650 mg 11/06/24 22:08 Acetaminophen 325 Mg Tablet PO Q4HR PRN Pain 1 to 4, or Fever Albuterol 2.5 mg 11/06/24 22:17 Albuterol Neb 2.5 Mg/3 Ml INH RTQ4H PRN Wheezing Albuterol/Ipratropium 3 ml 11/06/24 23:00 11/07/24 15:39 Ipratropium/Albuterol 3 Ml Neb INH 3 ml RTQID DONYA Administration Azithromycin 500 mg 11/07/24 09:00 11/07/24 08:58 Azithromycin 250 Mg Tablet PO 500 mg DAILY DONYA Administration Bacitracin 1 packet 11/07/24 14:57 Bacitracin Zinc Oint 1 Packet TOP PRN PRN Skin Care Ceftriaxone Sodium 2 gm 11/07/24 09:00 11/07/24 08:58 Ceftriaxone 2 Gm Vial IVP 2 gm DAILY DONYA Administration Chlorhexidine Gluconate 15 ml 11/07/24 09:00 11/07/24 08:59 Chlorhexidine Gluconate 15 Ml Udc PO 15 ml BID DONYA Administration Enoxaparin Sodium 40 mg 11/07/24 10:38 Enoxaparin 40 Mg/0.4 Ml Syringe SUBQ BID DONYA Famotidine 20 mg 11/06/24 22:00 11/07/24 08:59 Famotidine 20 Mg/2 Ml Vial IVP 20 mg BID DONYA Administration Fentanyl 2,500 mcg/ Sodium 250 mls @ 13.6 mls/hr 11/06/24 23:00 11/07/24 10:00 Chloride IV 0 mcg/kg/hr .[id number] DONYA 0 mls/hr Titration Protocol 1 MCG/KG/HR Propofol 1,000 mg in 100 mls @ 8.16 mls/hr 11/06/24 23:00 11/07/24 13:11 Diprivan IV 18.38 mcg/kg/min .[id number] DONYA 15 mls/hr Administration Protocol 10 MCG/KG/MIN Sodium Chloride 1,000 mls @ 125 mls/hr 11/06/24 23:00 11/07/24 17:34 Normal Saline 0.9% IV 125 mls/hr .Q8H DONYA Administration Insulin Human Regular 1 - 5 unit 11/07/24 00:00 11/07/24 18:13 Insulin Regular, Human 300 Unit/3 Ml Pen SUBQ 1 unit Q6HR DONYA Administration Protocol Ketorolac Tromethamine 15 mg 11/07/24 17:48 11/07/24 18:13 Ketorolac 15 Mg/Ml Vial IVP 11/12/24 17:47 15 mg Q6HR PRN Administration Severe Pain (Level 7-10) Methylprednisolone 40 mg 11/07/24 00:00 11/07/24 18:13 Methylprednisolone Succinate 40 Mg/Ml Vial IVP 40 mg Q6HR DONYA Administration Nystatin 1 applic 11/07/24 16:00 11/07/24 16:44 Nystatin Powder 15 Gm TOP 1 applic BID DONYA Administration Ondansetron HCl 4 mg 11/06/24 22:08 Ondansetron 4 Mg/2 Ml Vial IVP Q6HR PRN Nausea / Vomiting Scopolamine HBr 1 patch 11/07/24 15:00 11/07/24 15:36 Scopolamine Patch TOP 1 patch Q3D DONYA Administration Sodium Chloride 10 ml 11/07/24 01:00 11/07/24 18:14 Sodium Chloride Flush 0.9% 10 Ml Syringe IVP 10 ml 0100,0900,1700 DONYA Administration Sodium Chloride 10 ml 11/06/24 22:08 11/07/24 06:23 Sodium Chloride Flush 0.9% 10 Ml Syringe IVP 10 ml PRN PRN Administration NEEDED PER PROVIDER ORDERS Zinc Oxide 113 gm 11/07/24 14:57 Cod Liver Oil/Zinc Oxide 113 Gm Tube TOP PRN PRN Skin Care Objective Vital Signs/Intake & Output Reviewed Vital Signs: Yes Vital Signs: Vital Signs x48h Temp Pulse Pulse Resp BP Pulse Ox 11/07/24 18:00 37.4 C 79 23 107/63 93 11/07/24 17:00 37.3 C 80 21 115/63 96 11/07/24 16:00 37.3 C 74 20 115/63 96 11/07/24 15:39 68 20 11/07/24 15:30 74 11/07/24 15:00 37.4 C 68 24 107/62 92 11/07/24 14:00 37.3 C 72 24 118/68 93 11/07/24 13:49 74 11/07/24 13:00 37.1 C 75 20 107/61 93 11/07/24 12:00 36.9 C 71 20 89/52 L 91 L 11/07/24 11:56 70 11/07/24 11:30 73 89 L 11/07/24 11:11 80 20 11/07/24 11:00 36.9 C 83 16 113/84 96 Intake & Output: Intake & Output 11/04/24 11/05/24 11/06/24 11/07/24 23:59 23:59 23:59 23:59 Intake Total 1000 / 1000 3578 / 3578 Output Total 250 / 250 701 / 701 Balance 750 / 750 2877 / 2877 Weight (kg) 136 kg 133.5 kg Objective General Appearance: positive No acute distress and Alert Eyes Bilateral: positive Normal inspection Neck: positive Nml inspection Respiratory: positive No respiratory distress and Breath sounds nml; negative Wheezes Cardiovascular: positive Regular rate & rhythm, No murmur and No gallop Abdomen: positive Non-tender, No organomegaly, Nml bowel sounds and No distention Skin: positive Color nml Extremities: positive Non-tender, Nml appearance and No pedal edema Neurologic/Psychiatric: positive Oriented x3, CN's nml (2-12) and Mood/affect nml Lab Results 11/07/24 04:27 11/07/24 04:27 Other Labs: Lab Results x24hrs 11/07/24 11/07/24 11/07/24 Range/Units 16:43 14:40 11:34 WBC (4.8-10.8) x10^3/uL RBC (4.20-5.40) 10^6/uL Hgb (12.0-16.0) g/dL Hct (37.0-47.0) % MCV (81.0-99.0) fL MCH (27.0-31.0) pg MCHC (32.0-36.0) g/dL RDW (12.0-15.0) % Plt Count (130-450) 10^3/uL MPV (7.9-10.8) fL Neut # (Auto) (1.5-6.6) 10^3/uL Lymph # (Auto) (1.5-3.5) 10^3/uL [place] # (Auto) (0.0-1.0) 10^3/uL Eos # (Auto) (0.0-0.7) 10^3/uL Baso # (Auto) (0.0-0.1) 10^3/uL Absolute Nucleated RBC x10^3/uL Nucleated RBC % /100WBC PT (9.9-12.6) secs INR (0.8-1.2) APTT (24.9-33.3) secs Bld Gas Analysis Time 1448 Sample Site LEFT RADIAL ABG pH 7.60 H* (7.35-7.45) ABG pCO2 35 (34-45) mmHg ABG pO2 71 L (83-108) mmHg ABG HCO3 34.8 H (22.0-26.0) mmol/L ABG Total CO2 35.8 H (21.0-29.0) mmol/L ABG O2 Saturation 95 (95-98) % ABG Base Excess 13.0 H (-2.0-3.0) mmol/L Finn Test POSITIVE VBG pH (7.31-7.41) Ionized Calcium (1.09-1.30) mmol/L Respiration Rate 24 b/min O2 Delivery Device VENTILATOR Vent Mode ASSIST/CONTROL FiO2 60.00 PEEP 8 cmH2O Pressure Support Vent 30 cmH2O IPAP cmH2O Sodium (135-145) mmol/L Potassium (3.5-4.5) mmol/L Chloride (101-111) mmol/L Carbon Dioxide (21-32) mmol/L Anion Gap (6-13) BUN (6-20) mg/dL Creatinine (0.6-1.3) mg/dL Estimated GFR (MDRD) (>89) Glucose (74-104) mg/dL POC Whole Bld Glucose 165 157 (70-100) mg/dL Estimat Average Glucose (70-100) mg/dL Hemoglobin A1c % (4.27-6.07) % Lactic Acid (0.5-2.2) mmol/L Calcium (8.5-10.3) mg/dL Phosphorus (2.5-5.0) mg/dL Magnesium (1.7-2.3) mg/dL Total Bilirubin (0.2-1.0) mg/dL AST (10-42) IU/L ALT (10-60) IU/L Alkaline Phosphatase (42-121) IU/L B-Natriuretic Peptide (5-100) pg/mL Total Protein (6.4-8.9) g/dL Albumin (3.2-5.5) g/dL Globulin (2.1-4.2) g/dL Albumin/Globulin Ratio (1.0-2.2) Lipase (11-82) U/L Procalcitonin Immunoas (<0.5) ng/mL Urine Color Urine Clarity (CLEAR) Urine pH (5.0-7.5) PH Ur Specific [place] (1.002-1.030) Urine Protein (NEGATIVE) mg/dL Urine Glucose (UA) (NEGATIVE) mg/dL Urine Ketones (NEGATIVE) mg/dL Urine Occult Blood (NEGATIVE) Urine Nitrite (NEGATIVE) Urine Bilirubin (NEGATIVE) Urine Urobilinogen (NORMAL) E.U./dL Ur Leukocyte Esterase (NEGATIVE) Urine RBC (0-5) /HPF Urine WBC (0-5) /HPF Ur Squamous Epith Cells (<= Few) Amorphous Sediment /LPF Urine Bacteria (None Seen) /HPF Urine Casts /LPF Ur Microscopic Review Urine Culture Comments Nasal Adenovirus (PCR) Nasal B. parapertussis DNA (PCR) Nasal Coronavir 229E PCR Nasal Coronavir HKU1 PCR Nasal Coronavir NL63 PCR Nasal Coronavir OC43 PCR Nasal Enterovir/Rhinovir PCR Nasal Influenza B PCR Nasal Influenza A PCR Nasal Parainfluen 1 PCR Nasal Parainfluen 2 PCR Nasal Parainfluen 3 PCR Nasal Parainfluen 4 PCR Nasal RSV (PCR) Nasal Screen MRSA (PCR) (NEGATIVE) Nasal B.pertussis DNA PCR Nasal C.pneumoniae (PCR) Marshal Human Metapneumo PCR Nasal M.pneumoniae (PCR) Nasal SARS-CoV-2 (PCR) 11/07/24 11/07/24 11/07/24 Range/Units 09:25 06:11 04:27 WBC 11.2 H (4.8-10.8) x10^3/uL RBC 5.09 (4.20-5.40) 10^6/uL Hgb 13.2 (12.0-16.0) g/dL Hct 43.1 (37.0-47.0) % MCV 84.7 (81.0-99.0) fL MCH 25.9 L (27.0-31.0) pg MCHC 30.6 L (32.0-36.0) g/dL RDW 15.3 H (12.0-15.0) % Plt Count 322 (130-450) 10^3/uL MPV 8.3 (7.9-10.8) fL Neut # (Auto) 9.1 H (1.5-6.6) 10^3/uL Lymph # (Auto) 1.3 L (1.5-3.5) 10^3/uL [place] # (Auto) 0.6 (0.0-1.0) 10^3/uL Eos # (Auto) 0.2 (0.0-0.7) 10^3/uL Baso # (Auto) 0.0 (0.0-0.1) 10^3/uL Absolute Nucleated RBC 0.02 x10^3/uL Nucleated RBC % 0.2 /100WBC PT (9.9-12.6) secs INR (0.8-1.2) APTT (24.9-33.3) secs Bld Gas Analysis Time 0935 Sample Site LEFT RADIAL ABG pH 7.29 L (7.35-7.45) ABG pCO2 73 H* (34-45) mmHg ABG pO2 93 (83-108) mmHg ABG HCO3 35.1 H (22.0-26.0) mmol/L ABG Total CO2 37.3 H (21.0-29.0) mmol/L ABG O2 Saturation 95 (95-98) % ABG Base Excess 8.3 H (-2.0-3.0) mmol/L Finn Test POSITIVE VBG pH 7.547 H (7.31-7.41) Ionized Calcium 1.11 (1.09-1.30) mmol/L Respiration Rate 20 b/min O2 Delivery Device VENTILATOR Vent Mode ASSIST/CONTROL FiO2 60.00 PEEP 8 cmH2O Pressure Support Vent cmH2O IPAP 22 cmH2O Sodium 132 L (135-145) mmol/L Potassium 4.1 (3.5-4.5) mmol/L Chloride 91 L (101-111) mmol/L Carbon Dioxide 31 (21-32) mmol/L Anion Gap 10.0 (6-13) BUN 31 H (6-20) mg/dL Creatinine 0.6 (0.6-1.3) mg/dL Estimated GFR (MDRD) 103 (>89) Glucose 168 H (74-104) mg/dL POC Whole Bld Glucose 167 (70-100) mg/dL Estimat Average Glucose 146 H (70-100) mg/dL Hemoglobin A1c % 6.7 H (4.27-6.07) % Lactic Acid (0.5-2.2) mmol/L Calcium 8.8 (8.5-10.3) mg/dL Phosphorus 3.2 (2.5-5.0) mg/dL Magnesium 2.3 (1.7-2.3) mg/dL Total Bilirubin (0.2-1.0) mg/dL AST (10-42) IU/L ALT (10-60) IU/L Alkaline Phosphatase (42-121) IU/L B-Natriuretic Peptide (5-100) pg/mL Total Protein (6.4-8.9) g/dL Albumin (3.2-5.5) g/dL Globulin (2.1-4.2) g/dL Albumin/Globulin Ratio (1.0-2.2) Lipase (11-82) U/L Procalcitonin Immunoas (<0.5) ng/mL Urine Color Urine Clarity (CLEAR) Urine pH (5.0-7.5) PH Ur Specific [place] (1.002-1.030) Urine Protein (NEGATIVE) mg/dL Urine Glucose (UA) (NEGATIVE) mg/dL Urine Ketones (NEGATIVE) mg/dL Urine Occult Blood (NEGATIVE) Urine Nitrite (NEGATIVE) Urine Bilirubin (NEGATIVE) Urine Urobilinogen (NORMAL) E.U./dL Ur Leukocyte Esterase (NEGATIVE) Urine RBC (0-5) /HPF Urine WBC (0-5) /HPF Ur Squamous Epith Cells (<= Few) Amorphous Sediment /LPF Urine Bacteria (None Seen) /HPF Urine Casts /LPF Ur Microscopic Review Urine Culture Comments Nasal Adenovirus (PCR) Nasal B. parapertussis DNA (PCR) Nasal Coronavir 229E PCR Nasal Coronavir HKU1 PCR Nasal Coronavir NL63 PCR Nasal Coronavir OC43 PCR Nasal Enterovir/Rhinovir PCR Nasal Influenza B PCR Nasal Influenza A PCR Nasal Parainfluen 1 PCR Nasal Parainfluen 2 PCR Nasal Parainfluen 3 PCR Nasal Parainfluen 4 PCR Nasal RSV (PCR) Nasal Screen MRSA (PCR) (NEGATIVE) Nasal B.pertussis DNA PCR Nasal C.pneumoniae (PCR) Marshal Human Metapneumo PCR Nasal M.pneumoniae (PCR) Nasal SARS-CoV-2 (PCR) 11/07/24 11/06/24 11/06/24 Range/Units 01:30 22:37 20:50 WBC (4.8-10.8) x10^3/uL RBC (4.20-5.40) 10^6/uL Hgb (12.0-16.0) g/dL Hct (37.0-47.0) % MCV (81.0-99.0) fL MCH (27.0-31.0) pg MCHC (32.0-36.0) g/dL RDW (12.0-15.0) % Plt Count (130-450) 10^3/uL MPV (7.9-10.8) fL Neut # (Auto) (1.5-6.6) 10^3/uL Lymph # (Auto) (1.5-3.5) 10^3/uL [place] # (Auto) (0.0-1.0) 10^3/uL Eos # (Auto) (0.0-0.7) 10^3/uL Baso # (Auto) (0.0-0.1) 10^3/uL Absolute Nucleated RBC x10^3/uL Nucleated RBC % /100WBC PT (9.9-12.6) secs INR (0.8-1.2) APTT (24.9-33.3) secs Bld Gas Analysis Time 2049 Sample Site RIGHT RADIAL ABG pH 7.43 (7.35-7.45) ABG pCO2 55 H (34-45) mmHg ABG pO2 259 H (83-108) mmHg ABG HCO3 36.5 H (22.0-26.0) mmol/L ABG Total CO2 38.2 H (21.0-29.0) mmol/L ABG O2 Saturation 99 H (95-98) % ABG Base Excess 12.0 H (-2.0-3.0) mmol/L Finn Test POSITIVE VBG pH (7.31-7.41) Ionized Calcium (1.09-1.30) mmol/L Respiration Rate 16 b/min O2 Delivery Device VENTILATOR Vent Mode FiO2 100.00 PEEP 8 cmH2O Pressure Support Vent cmH2O IPAP cmH2O Sodium (135-145) mmol/L Potassium (3.5-4.5) mmol/L Chloride (101-111) mmol/L Carbon Dioxide (21-32) mmol/L Anion Gap (6-13) BUN (6-20) mg/dL Creatinine (0.6-1.3) mg/dL Estimated GFR (MDRD) (>89) Glucose (74-104) mg/dL POC Whole Bld Glucose 177 (70-100) mg/dL Estimat Average Glucose (70-100) mg/dL Hemoglobin A1c % (4.27-6.07) % Lactic Acid (0.5-2.2) mmol/L Calcium (8.5-10.3) mg/dL Phosphorus (2.5-5.0) mg/dL Magnesium (1.7-2.3) mg/dL Total Bilirubin (0.2-1.0) mg/dL AST (10-42) IU/L ALT (10-60) IU/L Alkaline Phosphatase (42-121) IU/L B-Natriuretic Peptide (5-100) pg/mL Total Protein (6.4-8.9) g/dL Albumin (3.2-5.5) g/dL Globulin (2.1-4.2) g/dL Albumin/Globulin Ratio (1.0-2.2) Lipase (11-82) U/L Procalcitonin Immunoas (<0.5) ng/mL Urine Color Urine Clarity (CLEAR) Urine pH (5.0-7.5) PH Ur Specific [place] (1.002-1.030) Urine Protein (NEGATIVE) mg/dL Urine Glucose (UA) (NEGATIVE) mg/dL Urine Ketones (NEGATIVE) mg/dL Urine Occult Blood (NEGATIVE) Urine Nitrite (NEGATIVE) Urine Bilirubin (NEGATIVE) Urine Urobilinogen (NORMAL) E.U./dL Ur Leukocyte Esterase (NEGATIVE) Urine RBC (0-5) /HPF Urine WBC (0-5) /HPF Ur Squamous Epith Cells (<= Few) Amorphous Sediment /LPF Urine Bacteria (None Seen) /HPF Urine Casts /LPF Ur Microscopic Review Urine Culture Comments Nasal Adenovirus (PCR) Nasal B. parapertussis DNA (PCR) Nasal Coronavir 229E PCR Nasal Coronavir HKU1 PCR Nasal Coronavir NL63 PCR Nasal Coronavir OC43 PCR Nasal Enterovir/Rhinovir PCR Nasal Influenza B PCR Nasal Influenza A PCR Nasal Parainfluen 1 PCR Nasal Parainfluen 2 PCR Nasal Parainfluen 3 PCR Nasal Parainfluen 4 PCR Nasal RSV (PCR) Nasal Screen MRSA (PCR) NEGATIVE (NEGATIVE) Nasal B.pertussis DNA PCR Nasal C.pneumoniae (PCR) Marshal Human Metapneumo PCR Nasal M.pneumoniae (PCR) Nasal SARS-CoV-2 (PCR) 11/06/24 11/06/24 11/06/24 Range/Units 20:45 20:16 20:02 WBC 10.5 (4.8-10.8) x10^3/uL RBC 5.42 H (4.20-5.40) 10^6/uL Hgb 14.3 (12.0-16.0) g/dL Hct 46.5 (37.0-47.0) % MCV 85.8 (81.0-99.0) fL MCH 26.4 L (27.0-31.0) pg MCHC 30.8 L (32.0-36.0) g/dL RDW 15.4 H (12.0-15.0) % Plt Count 339 (130-450) 10^3/uL MPV 7.9 (7.9-10.8) fL Neut # (Auto) 8.1 H (1.5-6.6) 10^3/uL Lymph # (Auto) 1.2 L (1.5-3.5) 10^3/uL [place] # (Auto) 0.7 (0.0-1.0) 10^3/uL Eos # (Auto) 0.3 (0.0-0.7) 10^3/uL Baso # (Auto) 0.1 (0.0-0.1) 10^3/uL Absolute Nucleated RBC 0.02 x10^3/uL Nucleated RBC % 0.2 /100WBC PT 14.6 H (9.9-12.6) secs INR 1.3 H (0.8-1.2) APTT 24.0 L (24.9-33.3) secs Bld Gas Analysis Time Sample Site ABG pH (7.35-7.45) ABG pCO2 (34-45) mmHg ABG pO2 (83-108) mmHg ABG HCO3 (22.0-26.0) mmol/L ABG Total CO2 (21.0-29.0) mmol/L ABG O2 Saturation (95-98) % ABG Base Excess (-2.0-3.0) mmol/L Finn Test VBG pH (7.31-7.41) Ionized Calcium (1.09-1.30) mmol/L Respiration Rate b/min O2 Delivery Device Vent Mode FiO2 PEEP cmH2O Pressure Support Vent cmH2O IPAP cmH2O Sodium 130 L (135-145) mmol/L Potassium 4.1 (3.5-4.5) mmol/L Chloride 88 L (101-111) mmol/L Carbon Dioxide 33 H (21-32) mmol/L Anion Gap 9.0 (6-13) BUN 35 H (6-20) mg/dL Creatinine 0.7 (0.6-1.3) mg/dL Estimated GFR (MDRD) 86 L (>89) Glucose 170 H (74-104) mg/dL POC Whole Bld Glucose (70-100) mg/dL Estimat Average Glucose (70-100) mg/dL Hemoglobin A1c % (4.27-6.07) % Lactic Acid 1.1 (0.5-2.2) mmol/L Calcium 9.1 (8.5-10.3) mg/dL Phosphorus (2.5-5.0) mg/dL Magnesium (1.7-2.3) mg/dL Total Bilirubin 0.8 (0.2-1.0) mg/dL AST 14 (10-42) IU/L ALT 23 (10-60) IU/L Alkaline Phosphatase 144 H (42-121) IU/L B-Natriuretic Peptide 683 H (5-100) pg/mL Total Protein 7.5 (6.4-8.9) g/dL Albumin 3.3 (3.2-5.5) g/dL Globulin 4.2 (2.1-4.2) g/dL Albumin/Globulin Ratio 0.8 L (1.0-2.2) Lipase 18 (11-82) U/L Procalcitonin Immunoas 0.25 (<0.5) ng/mL Urine Color DARK YELLOW Urine Clarity HAZY (CLEAR) Urine pH 6.0 (5.0-7.5) PH Ur Specific [place] >=1.030 H (1.002-1.030) Urine Protein >=300 H (NEGATIVE) mg/dL Urine Glucose (UA) 100 H (NEGATIVE) mg/dL Urine Ketones TRACE (NEGATIVE) mg/dL Urine Occult Blood NEGATIVE (NEGATIVE) Urine Nitrite POSITIVE H (NEGATIVE) Urine Bilirubin MODERATE H (NEGATIVE) Urine Urobilinogen >=8.0 H (NORMAL) E.U./dL Ur Leukocyte Esterase NEGATIVE (NEGATIVE) Urine RBC None Seen (0-5) /HPF Urine WBC 0-3 (0-5) /HPF Ur Squamous Epith Cells FEW Squamous (<= Few) Amorphous Sediment Rare /LPF Urine Bacteria Rare (None Seen) /HPF Urine Casts 11-25 Hyaline Casts /LPF Ur Microscopic Review INDICATED Urine Culture Comments INDICATED Nasal Adenovirus (PCR) NOT DETECTED Nasal B. parapertussis DNA (PCR) NOT DETECTED Nasal Coronavir 229E PCR NOT DETECTED Nasal Coronavir HKU1 PCR NOT DETECTED Nasal Coronavir NL63 PCR NOT DETECTED Nasal Coronavir OC43 PCR NOT DETECTED Nasal Enterovir/Rhinovir PCR NOT DETECTED Nasal Influenza B PCR NOT DETECTED Nasal Influenza A PCR NOT DETECTED Nasal Parainfluen 1 PCR NOT DETECTED Nasal Parainfluen 2 PCR NOT DETECTED Nasal Parainfluen 3 PCR NOT DETECTED Nasal Parainfluen 4 PCR NOT DETECTED Nasal RSV (PCR) NOT DETECTED Nasal Screen MRSA (PCR) (NEGATIVE) Nasal B.pertussis DNA PCR NOT DETECTED Nasal C.pneumoniae (PCR) NOT DETECTED Marshal Human Metapneumo PCR NOT DETECTED Nasal M.pneumoniae (PCR) NOT DETECTED Nasal SARS-CoV-2 (PCR) NOT DETECTED Diagnostic Imaging Diagnostic Imaging Results: positive Final report reviewed Assessment/Plan Problem List (1) Acute and chronic respiratory failure with hypercapnia: Impression: * Improving * 2/2 COPD w/ probable mucous plug * Titrate vent settings, possible extubation tomorrow (2) COPD exacerbation: Impression: * As above * Cont vent, supportive care * Cont solu-medrol (3) UTI (urinary tract infection): Impression: * Not septic * Cont Ceftriaxone (4) Diabetes: Impression: * ISS * NPO * Diabetic diet when extubated if able to eat
[2024-11-07 20:50] LABS: ABG PH 7.44 (7.35-7.45)
[2024-11-07 20:51] LABS: ABG BASE EXCESS 13.5 mmol/L (-2.0-3.0); ABG HCO3 37.9 mmol/L (22.0-26.0); ABG OXYGEN SATURATION 95 % (95-98); ABG PCO2 56 mmHg (34-45); ABG PO2 81 mmHg (83-108)
[2024-11-07 20:52] LABS: ABG RESPIRATORY RATE 20 b/min; ALLEN TEST POSITIVE
[2024-11-07 20:56] LABS: ABG TCO2 39.6 mmol/L (21.0-29.0)
[2024-11-07] MEDS: COD LIVER OIL/ZINC OXIDE 113 GM TUBE TOP PRN (20:59)
[2024-11-07] MEDS: ALBUTEROL NEB 2.5 MG/3 ML INH PRN (21:51)
[2024-11-08 04:34] LABS: BASOPHILS % (AUTO) 0.2 %; HCT - HEMATOCRIT 42.7 % (37.0-47.0); HGB - HEMOGLOBIN 12.7 g/dL (12.0-16.0); LYMPHOCYTES # (AUTO) 1.1 10^3/uL (1.5-3.5); LYMPHOCYTES % (AUTO) 8.3 %; MEAN CORPUSCULAR HEMOGLOBIN 26.2 pg (27.0-31.0); MEAN CORPUSCULAR HGB CONC 29.7 g/dL (32.0-36.0); MEAN PLATELET VOLUME 8.1 fL (7.9-10.8); MONOCYTES # (AUTO) 0.8 10^3/uL (0.0-1.0); MONOCYTES % (AUTO) 5.5 %; NEUTROPHILS # (AUTO) 11.5 10^3/uL (1.5-6.6); NEUTROPHILS % (AUTO) 83.7 %; PLT - PLATELET COUNT 308 10^3/uL (130-450); RED BLOOD COUNT 4.85 10^6/uL (4.20-5.40); RED CELL DISTRIBUTION WIDTH 15.7 % (12.0-15.0); WHITE BLOOD COUNT 13.8 x10^3/uL (4.8-10.8)
[2024-11-08 04:49] LABS: CALCIUM, IONIZED 1.17 mmol/L (1.09-1.30); VBG PH 7.599 (7.31-7.41)
[2024-11-08 04:55] LABS: CALCIUM 8.7 mg/dL (8.5-10.3); CREATININE 1.2 mg/dL (0.6-1.3); MAGNESIUM 2.7 mg/dL (1.7-2.3); PHOSPHORUS 5.1 mg/dL (2.5-5.0); POTASSIUM 4.5 mmol/L (3.5-4.5)
[2024-11-08 05:48] LABS: ABG BASE EXCESS 9.4 mmol/L (-2.0-3.0); ABG HCO3 34.1 mmol/L (22.0-26.0); ABG OXYGEN SATURATION 98 % (95-98); ABG PCO2 53 mmHg (34-45); ABG PH 7.42 (7.35-7.45); ABG PO2 96 mmHg (83-108); ABG TCO2 35.7 mmol/L (21.0-29.0); ALLEN TEST POSITIVE
[2024-11-08 05:49] LABS: ABG MODE OF VENTILATION PRESSURE CONTROL; ABG RESPIRATORY RATE 20 b/min
--- NOTE | 2024-11-08 08:19 | XRAY Report ---
PROCEDURE: XR Chest 1V INDICATIONS: intubated TECHNIQUE: One view of the chest was acquired. COMPARISON: 11/06/2024. FINDINGS: Surgical changes and devices: ET tube tip is approximately 3.6 cm above the franco. NG tube tip is below the left hemidiaphragm. Lungs and pleura: No pleural effusions or pneumothorax. No consolidation. Mediastinum: Mediastinal contours appear normal. Heart size is enlarged. Bones and chest wall: No suspicious bony lesions. Overlying soft tissues appear unremarkable. IMPRESSION: Tube and lines are in satisfactory position. No definite focal infiltrate. No pleural effusion or pneumothorax. Reviewed by: Anibal Mcintyre MD on 11/08/2024 8:17 AM PDT Approved by: Anibal Mcintyre MD on 11/08/2024 8:17 AM PDT Station ID: [id number]
[2024-11-08] MEDS ORDERED: cefTRIAXone 1 GM in SODIUM CHLORIDE 0.9% MINIBAG 100 ML IV SCH (09:00)
--- NOTE | 2024-11-08 10:16 | PROVIDER PROGRESS NOTE ---
Subjective Prog Note Date Prog Note Date: 11/08/24 Prog Note Time: 10:13 Subjective Pt reports feeling: Improved Subjective: Patient was seen at the bedside during and shortly after extubation. She says she feels well. She is looking forward to to go home. Current Medications Current Medications Current Medications: Current Medications Generic Name Dose Route Start Last Admin Trade Name Freq PRN Reason Stop Dose Admin Acetaminophen 650 mg 11/06/24 22:08 Acetaminophen 325 Mg Tablet PO Q4HR PRN Pain 1 to 4, or Fever Albuterol 2.5 mg 11/06/24 22:17 11/08/24 05:27 Albuterol Neb 2.5 Mg/3 Ml INH 2.5 mg RTQ4H PRN Administration Wheezing Albuterol/Ipratropium 3 ml 11/06/24 23:00 11/08/24 07:18 Ipratropium/Albuterol 3 Ml Neb INH 3 ml RTQID DONYA Administration Azithromycin 500 mg 11/07/24 09:00 11/08/24 08:09 Azithromycin 250 Mg Tablet PO 500 mg DAILY DONYA Administration Bacitracin 1 packet 11/07/24 14:57 Bacitracin Zinc Oint 1 Packet TOP PRN PRN Skin Care Ceftriaxone Sodium 2 gm 11/07/24 09:00 11/08/24 08:08 Ceftriaxone 2 Gm Vial IVP 2 gm DAILY DONYA Administration Chlorhexidine Gluconate 15 ml 11/07/24 09:00 11/08/24 08:08 Chlorhexidine Gluconate 15 Ml Udc PO 15 ml BID DONYA Administration Enoxaparin Sodium 40 mg 11/07/24 10:38 11/08/24 08:08 Enoxaparin 40 Mg/0.4 Ml Syringe SUBQ 40 mg BID DONYA Administration Famotidine 20 mg 11/06/24 22:00 11/08/24 08:09 Famotidine 20 Mg/2 Ml Vial IVP 20 mg BID DONYA Administration Sodium Chloride 1,000 mls @ 125 mls/hr 11/06/24 23:00 11/08/24 00:53 Normal Saline 0.9% IV 125 mls/hr .Q8H DONYA Administration Insulin Human Regular 1 - 5 unit 11/07/24 00:00 11/08/24 06:03 Insulin Regular, Human 300 Unit/3 Ml Pen SUBQ 1 unit Q6HR DONYA Administration Protocol Ketorolac Tromethamine 15 mg 06/13/25 17:48 11/08/24 06:35 Ketorolac 15 Mg/Ml Vial IVP 11/12/24 17:47 15 mg Q6HR PRN Administration Severe Pain (Level 7-10) Methylprednisolone 40 mg 11/07/24 00:00 11/08/24 06:03 Methylprednisolone Succinate 40 Mg/Ml Vial IVP 40 mg Q6HR DONYA Administration Nystatin 1 applic 11/07/24 16:00 11/08/24 08:09 Nystatin Powder 15 Gm TOP 1 applic BID DONYA Administration Ondansetron HCl 4 mg 11/06/24 22:08 Ondansetron 4 Mg/2 Ml Vial IVP Q6HR PRN Nausea / Vomiting Scopolamine HBr 1 patch 11/07/24 15:00 11/07/24 15:36 Scopolamine Patch TOP 1 patch Q3D DONYA Administration Sodium Chloride 10 ml 11/07/24 01:00 11/08/24 08:09 Sodium Chloride Flush 0.9% 10 Ml Syringe IVP 10 ml 0100,0900,1700 DONYA Administration Sodium Chloride 10 ml 11/06/24 22:08 11/08/24 06:36 Sodium Chloride Flush 0.9% 10 Ml Syringe IVP 10 ml PRN PRN Administration NEEDED PER PROVIDER ORDERS Zinc Oxide 113 gm 11/07/24 14:57 11/07/24 20:59 Cod Liver Oil/Zinc Oxide 113 Gm Tube TOP 1 applic PRN PRN Administration Skin Care Objective Vital Signs/Intake & Output Reviewed Vital Signs: Yes Vital Signs: Vital Signs x48h Temp Pulse Pulse Resp BP Pulse Ox O2 Flow Rate 11/08/24 10:00 77 21 131/77 H 93 4 11/08/24 09:00 37.0 C 72 18 112/69 91 L 2 11/08/24 08:56 4 11/08/24 08:00 36.8 C 69 19 98/59 L 93 11/08/24 07:40 71 11/08/24 07:20 71 23 11/08/24 07:18 64 11/08/24 07:00 36.8 C 62 20 89/53 L 93 11/08/24 06:00 36.7 C 61 20 96/57 L 94 11/08/24 05:30 65 20 11/08/24 05:30 63 11/08/24 05:00 36.6 C 63 20 90/51 L 94 11/08/24 04:03 61 11/08/24 04:00 36.6 C 60 20 103/60 94 11/08/24 03:00 36.7 C 62 20 98/63 92 Intake & Output: Intake & Output 11/05/24 11/06/24 11/07/24 11/08/24 23:59 23:59 23:59 23:59 Intake Total 1000 / 1000 3697 / 3697 1157 / 1157 Output Total 250 / 250 843 / 843 302 / 302 Balance 750 / 750 2854 / 2854 855 / 855 Weight (kg) 136 kg 133.5 kg 135 kg Objective General Appearance: positive No acute distress and Alert ENT: positive ENT inspection nml Respiratory: positive Rhonchi; negative Chest non-tender, No respiratory distress or Wheezes Cardiovascular: positive Regular rate & rhythm Abdomen: positive Non-tender and No distention Rectal: positive Non-tender Skin: positive Color nml Extremities: positive Nml appearance Neurologic/Psychiatric: positive Oriented x3 and CN's nml (2-12) Lab Results 11/08/24 04:27 11/08/24 04:27 Other Labs: Lab Results x24hrs 11/08/24 11/08/24 11/08/24 Range/Units 05:57 05:30 04:27 WBC 13.8 H (4.8-10.8) x10^3/uL RBC 4.85 (4.20-5.40) 10^6/uL Hgb 12.7 (12.0-16.0) g/dL Hct 42.7 (37.0-47.0) % MCV 88.0 (81.0-99.0) fL MCH 26.2 L (27.0-31.0) pg MCHC 29.7 L (32.0-36.0) g/dL RDW 15.7 H (12.0-15.0) % Plt Count 308 (130-450) 10^3/uL MPV 8.1 (7.9-10.8) fL Neut # (Auto) 11.5 H (1.5-6.6) 10^3/uL Lymph # (Auto) 1.1 L (1.5-3.5) 10^3/uL Wilcox # (Auto) 0.8 (0.0-1.0) 10^3/uL Eos # (Auto) 0.0 (0.0-0.7) 10^3/uL Baso # (Auto) 0.0 (0.0-0.1) 10^3/uL Absolute Nucleated RBC 0.00 x10^3/uL Nucleated RBC % 0.0 /100WBC Bld Gas Analysis Time 0530 Sample Site RIGHT RADIAL ABG pH 7.42 (7.35-7.45) ABG pCO2 53 H (34-45) mmHg ABG pO2 96 (83-108) mmHg ABG HCO3 34.1 H (22.0-26.0) mmol/L ABG Total CO2 35.7 H (21.0-29.0) mmol/L ABG O2 Saturation 98 (95-98) % ABG Base Excess 9.4 H (-2.0-3.0) mmol/L Finn Test POSITIVE VBG pH 7.599 H (7.31-7.41) Ionized Calcium 1.17 (1.09-1.30) mmol/L Respiration Rate 20 b/min O2 Delivery Device VENTILATOR Vent Mode PRESSURE CONTROL FiO2 50.00 PEEP 8 cmH2O Pressure Support Vent 23 cmH2O Sodium 135 (135-145) mmol/L Potassium 4.5 (3.5-4.5) mmol/L Chloride 96 L (101-111) mmol/L Carbon Dioxide 30 (21-32) mmol/L Anion Gap 9.0 (6-13) BUN 42 H (6-20) mg/dL Creatinine 1.2 (0.6-1.3) mg/dL Estimated GFR (MDRD) 46 L (>89) Glucose 167 H (74-104) mg/dL POC Whole Bld Glucose 162 (70-100) mg/dL Calcium 8.7 (8.5-10.3) mg/dL Phosphorus 5.1 H (2.5-5.0) mg/dL Magnesium 2.7 H (1.7-2.3) mg/dL 11/08/24 11/07/24 11/07/24 Range/Units 00:02 20:40 16:43 WBC (4.8-10.8) x10^3/uL RBC (4.20-5.40) 10^6/uL Hgb (12.0-16.0) g/dL Hct (37.0-47.0) % MCV (81.0-99.0) fL MCH (27.0-31.0) pg MCHC (32.0-36.0) g/dL RDW (12.0-15.0) % Plt Count (130-450) 10^3/uL MPV (7.9-10.8) fL Neut # (Auto) (1.5-6.6) 10^3/uL Lymph # (Auto) (1.5-3.5) 10^3/uL Wilcox # (Auto) (0.0-1.0) 10^3/uL Eos # (Auto) (0.0-0.7) 10^3/uL Baso # (Auto) (0.0-0.1) 10^3/uL Absolute Nucleated RBC x10^3/uL Nucleated RBC % /100WBC Bld Gas Analysis Time 2042 Sample Site LEFT RADIAL ABG pH 7.44 (7.35-7.45) ABG pCO2 56 H (34-45) mmHg ABG pO2 81 L (83-108) mmHg ABG HCO3 37.9 H (22.0-26.0) mmol/L ABG Total CO2 39.6 H* (21.0-29.0) mmol/L ABG O2 Saturation 95 (95-98) % ABG Base Excess 13.5 H (-2.0-3.0) mmol/L Finn Test POSITIVE VBG pH (7.31-7.41) Ionized Calcium (1.09-1.30) mmol/L Respiration Rate 20 b/min O2 Delivery Device VENTILATOR Vent Mode FiO2 50.00 PEEP 8 cmH2O Pressure Support Vent cmH2O Sodium (135-145) mmol/L Potassium (3.5-4.5) mmol/L Chloride (101-111) mmol/L Carbon Dioxide (21-32) mmol/L Anion Gap (6-13) BUN (6-20) mg/dL Creatinine (0.6-1.3) mg/dL Estimated GFR (MDRD) (>89) Glucose (74-104) mg/dL POC Whole Bld Glucose 160 165 (70-100) mg/dL Calcium (8.5-10.3) mg/dL Phosphorus (2.5-5.0) mg/dL Magnesium (1.7-2.3) mg/dL 11/07/24 11/07/24 Range/Units 14:40 11:34 WBC (4.8-10.8) x10^3/uL RBC (4.20-5.40) 10^6/uL Hgb (12.0-16.0) g/dL Hct (37.0-47.0) % MCV (81.0-99.0) fL MCH (27.0-31.0) pg MCHC (32.0-36.0) g/dL RDW (12.0-15.0) % Plt Count (130-450) 10^3/uL MPV (7.9-10.8) fL Neut # (Auto) (1.5-6.6) 10^3/uL Lymph # (Auto) (1.5-3.5) 10^3/uL Wilcox # (Auto) (0.0-1.0) 10^3/uL Eos # (Auto) (0.0-0.7) 10^3/uL Baso # (Auto) (0.0-0.1) 10^3/uL Absolute Nucleated RBC x10^3/uL Nucleated RBC % /100WBC Bld Gas Analysis Time 1448 Sample Site LEFT RADIAL ABG pH 7.60 H* (7.35-7.45) ABG pCO2 35 (34-45) mmHg ABG pO2 71 L (83-108) mmHg ABG HCO3 34.8 H (22.0-26.0) mmol/L ABG Total CO2 35.8 H (21.0-29.0) mmol/L ABG O2 Saturation 95 (95-98) % ABG Base Excess 13.0 H (-2.0-3.0) mmol/L Finn Test POSITIVE VBG pH (7.31-7.41) Ionized Calcium (1.09-1.30) mmol/L Respiration Rate 24 b/min O2 Delivery Device VENTILATOR Vent Mode ASSIST/CONTROL FiO2 60.00 PEEP 8 cmH2O Pressure Support Vent 30 cmH2O Sodium (135-145) mmol/L Potassium (3.5-4.5) mmol/L Chloride (101-111) mmol/L Carbon Dioxide (21-32) mmol/L Anion Gap (6-13) BUN (6-20) mg/dL Creatinine (0.6-1.3) mg/dL Estimated GFR (MDRD) (>89) Glucose (74-104) mg/dL POC Whole Bld Glucose 157 (70-100) mg/dL Calcium (8.5-10.3) mg/dL Phosphorus (2.5-5.0) mg/dL Magnesium (1.7-2.3) mg/dL Diagnostic Imaging Diagnostic Imaging Results: positive Final report reviewed Assessment/Plan Problem List (1) Acute and chronic respiratory failure with hypercapnia: Impression: * Patient was successfully extubated today * She is doing well, on 4 L nasal cannula * Will continue COPD management and wean oxygen as able (2) COPD exacerbation: Impression: * As above she has been successfully extubated and is doing well * Will continue to wean oxygen as able * Will transition methylprednisolone to p.o. steroids starting tomorrow * Continue azithromycin for COPD exacerbation as there is no apparent pneumonia on chest x-ray * I have also counseled her extensively on the importance of tobacco cessation (3) UTI (urinary tract infection): Impression: * Urine Cx shows no growth * It is unclear if these urine culture was collected after antibiotics were started thus creating a negative urine culture but in any case she is already had 2 of 3 doses of ceftriaxone * Will continue ceftriaxone until tomorrow then discontinue (4) Diabetes: Impression: * Blood sugar is well-controlled * Continue insulin sliding scale and initiate diabetic diet
[2024-11-08] MEDS: NICOTINE 21 MG PATCH TOP SCH (13:27)
[2024-11-08] MEDS: methylPREDNISolone SUCCINATE 40 MG/ML VIAL IVP ONE (15:00)
[2024-11-08] MEDS ORDERED: GABAPENTIN 300 MG CAPSULE PO PRN (16:28)
[2024-11-08] MEDS: INSULIN REGULAR, HUMAN 300 UNIT/3 ML PEN SUBQ SCH (16:36)
[2024-11-08] MEDS: DIVALPROEX ER 250 MG TABLET PO SCH ×2 (20:52)
[2024-11-08] MEDS: SOLIFENACIN SUCCINATE 5 MG TABLET PO SCH (20:52)
[2024-11-08] MEDS: CITALOPRAM HYDROBROMIDE 20 MG TABLET PO SCH (20:53)
[2024-11-08] MEDS: lamoTRIgine 25 MG TABLET PO SCH (20:53)
[2024-11-08] MEDS: lamoTRIgine 100 MG TABLET PO SCH (20:53)
[2024-11-09 04:40] LABS: BASOPHILS % (AUTO) 0.6 %; EOSINOPHILS % (AUTO) 0.1 %; HCT - HEMATOCRIT 49.9 % (37.0-47.0); HGB - HEMOGLOBIN 14.4 g/dL (12.0-16.0); LYMPHOCYTES % (AUTO) 19.4 %; MEAN CORPUSCULAR HEMOGLOBIN 25.9 pg (27.0-31.0); MEAN CORPUSCULAR HGB CONC 28.9 g/dL (32.0-36.0); MEAN CORPUSCULAR VOLUME 89.9 fL (81.0-99.0); MONOCYTES % (AUTO) 9.8 %; NEUTROPHILS % (AUTO) 65.2 %; PLT - PLATELET COUNT 342 10^3/uL (130-450); RED BLOOD COUNT 5.55 10^6/uL (4.20-5.40); RED CELL DISTRIBUTION WIDTH 16.1 % (12.0-15.0); WHITE BLOOD COUNT 17.7 x10^3/uL (4.8-10.8)
[2024-11-09 04:44] LABS: ABNORMAL LYMPHS % (MANUAL) 0 %; BAND NEUTROPHILS % (MANUAL) 0 %
[2024-11-09 04:45] LABS: CALCIUM, IONIZED 1.16 mmol/L (1.09-1.30); VBG PH 7.447 (7.31-7.41)
[2024-11-09 04:49] LABS: MAGNESIUM 2.6 mg/dL (1.7-2.3)
[2024-11-09 04:55] LABS: CALCIUM 9.6 mg/dL (8.5-10.3); CREATININE 0.8 mg/dL (0.6-1.3); POTASSIUM 4.4 mmol/L (3.5-4.5)
[2024-11-09 05:02] LABS: EOSINOPHILS # (MANUAL) 0.2 10^3/uL (0-0.7); LYMPHOCYTES # (MANUAL) 5.1 10^3/uL (1.5-3.5); LYMPHOCYTES % (MANUAL) 29 %; METAMYELOCYTES % (MANUAL) 1 %; MONOCYTES # (MANUAL) 2.1 10^3/uL (0.0-1.0); MYELOCYTES % (MANUAL) 1 %; NEUTROPHILS # (MANUAL) 9.9 10^3/uL (1.5-6.6)
[2024-11-09 05:04] LABS: DIFFERENTIAL COMMENT MANUAL DIFFERENTIAL; PLATELET ESTIMATE, MANUAL NORMAL (130-450,000) (NORMAL); PLATELET MORPHOLOGY NORMAL APPEARANCE (NORMAL); RBC MORPHOLOGY (MULTIPLE) NORMAL APPEARANCE (NORMAL); WBC MORPHOLOGY (MULTIPLE) NORMAL APPEARANCE (NORMAL)
[2024-11-09] MEDS: predniSONE 20 MG TABLET PO SCH (08:16)
[2024-11-09] MEDS: guaiFENesin 600 MG TABLET PO SCH (10:19)
[2024-11-09] MEDS: FUROSEMIDE 40 MG/4 ML VIAL IVP SCH (10:19)
[2024-11-09] MEDS ORDERED: OXYMETAZOLINE NASAL SPRAY NAS PRN (11:50)
--- NOTE | 2024-11-09 12:55 | PROVIDER PROGRESS NOTE ---
Subjective Prog Note Date Prog Note Date: 11/09/24 Prog Note Time: 10:00 Subjective Pt reports feeling: Improved Subjective: Patient says she is doing better and is very adamant that she wants to go home. She does display limited insight as to the reason for her feeling better being the 5 L of supplemental oxygen that she is currently receiving and does not have access to at home Current Medications Current Medications Current Medications: Current Medications Generic Name Dose Route Start Last Admin Trade Name Freq PRN Reason Stop Dose Admin Acetaminophen 650 mg 11/06/24 22:08 Acetaminophen 325 Mg Tablet PO Q4HR PRN Pain 1 to 4, or Fever Albuterol 2.5 mg 11/06/24 22:17 11/08/24 13:41 Albuterol Neb 2.5 Mg/3 Ml INH 2.5 mg RTQ4H PRN Administration Wheezing Albuterol/Ipratropium 3 ml 11/06/24 23:00 11/09/24 11:36 Ipratropium/Albuterol 3 Ml Neb INH 3 ml RTQID DONYA Administration Azithromycin 500 mg 11/07/24 09:00 11/09/24 08:16 Azithromycin 250 Mg Tablet PO 500 mg DAILY DONYA Administration Bacitracin 1 packet 11/07/24 14:57 Bacitracin Zinc Oint 1 Packet TOP PRN PRN Skin Care Ceftriaxone Sodium 2 gm 11/07/24 09:00 11/09/24 08:19 Ceftriaxone 2 Gm Vial IVP 2 gm DAILY DONYA Administration Chlorhexidine Gluconate 15 ml 11/07/24 09:00 11/09/24 08:19 Chlorhexidine Gluconate 15 Ml Udc PO Not Given BID DONYA Citalopram Hydrobromide 40 mg 11/08/24 21:00 11/08/24 20:53 Citalopram Hydrobromide 20 Mg Tablet PO 40 mg QPM DONYA Administration Divalproex Sodium 250 mg 11/08/24 21:00 11/08/24 20:52 Divalproex Er 250 Mg Tablet PO 250 mg QPM DONYA Administration Divalproex Sodium 500 mg 11/08/24 21:00 11/08/24 20:52 Divalproex Er 250 Mg Tablet PO 500 mg QPM DONYA Administration Enoxaparin Sodium 40 mg 11/07/24 10:38 11/09/24 08:19 Enoxaparin 40 Mg/0.4 Ml Syringe SUBQ 40 mg BID DONYA Administration Famotidine 20 mg 11/06/24 22:00 11/09/24 08:19 Famotidine 20 Mg/2 Ml Vial IVP 20 mg BID DONYA Administration Furosemide 40 mg 11/09/24 09:45 11/09/24 10:19 Furosemide 40 Mg/4 Ml Vial IVP 40 mg DAILY DONYA Administration Gabapentin 300 mg 11/08/24 16:28 Gabapentin 300 Mg Capsule PO BID PRN pain Guaifenesin 1,200 mg 11/09/24 10:00 11/09/24 10:19 Guaifenesin 600 Mg Tablet PO 1,200 mg BID DONYA Administration Insulin Human Regular 1 - 5 unit 11/08/24 16:00 11/09/24 12:06 Insulin Regular, Human 300 Unit/3 Ml Pen SUBQ 1 unit ACHS DONYA Administration Protocol Ketorolac Tromethamine 15 mg 11/07/24 17:48 11/08/24 06:35 Ketorolac 15 Mg/Ml Vial IVP 11/12/24 17:47 15 mg Q6HR PRN Administration Severe Pain (Level 7-10) Lamotrigine 100 mg 11/08/24 21:00 11/08/24 20:53 Lamotrigine 100 Mg Tablet PO 100 mg QPM DONYA Administration Lamotrigine 50 mg 11/08/24 21:00 11/08/24 20:53 Lamotrigine 25 Mg Tablet PO 50 mg QPM DONYA Administration Nicotine 1 patch 11/08/24 13:15 11/09/24 08:19 Nicotine 21 Mg Patch TOP 1 patch DAILY DONYA Administration Nystatin 1 applic 11/07/24 16:00 11/09/24 08:20 Nystatin Powder 15 Gm TOP 1 applic BID DONYA Administration Ondansetron HCl 4 mg 11/06/24 22:08 Ondansetron 4 Mg/2 Ml Vial IVP Q6HR PRN Nausea / Vomiting Oxymetazoline HCl 2 sprays 11/09/24 11:50 Oxymetazoline Nasal [place] MICHAEL BID PRN Nasal Congestion Prednisone 60 mg 11/09/24 08:00 11/09/24 08:16 Prednisone 20 Mg Tablet PO 60 mg DAILYWM DONYA Administration Scopolamine HBr 1 patch 11/07/24 15:00 11/07/24 15:36 Scopolamine Patch TOP 1 patch Q3D DONYA Administration Sodium Chloride 10 ml 11/07/24 01:00 11/09/24 08:20 Sodium Chloride Flush 0.9% 10 Ml Syringe IVP 10 ml 0100,0900,1700 DONYA Administration Sodium Chloride 10 ml 11/06/24 22:08 11/08/24 06:36 Sodium Chloride Flush 0.9% 10 Ml Syringe IVP 10 ml PRN PRN Administration NEEDED PER PROVIDER ORDERS Solifenacin 5 mg 11/08/24 21:00 11/08/24 20:52 Solifenacin Succinate 5 Mg Tablet PO 5 mg QPM DONYA Administration Zinc Oxide 113 gm 11/07/24 14:57 11/07/24 20:59 Cod Liver Oil/Zinc Oxide 113 Gm Tube TOP 1 applic PRN PRN Administration Skin Care Objective Vital Signs/Intake & Output Reviewed Vital Signs: Yes Vital Signs: Vital Signs x48h Temp Pulse Pulse Resp BP Pulse Ox O2 Flow Rate 11/09/24 12:00 36.6 C 83 23 134/75 H 92 5 11/09/24 11:36 82 20 5 11/09/24 08:00 79 24 160/87 H 92 5 11/09/24 07:50 5 11/09/24 07:43 83 24 5 11/09/24 07:00 87 25 H 140/80 H 91 L 4 11/09/24 06:00 78 24 138/79 H 93 4 11/09/24 05:00 94 25 H 123/64 92 4 Intake & Output: Intake & Output 11/06/24 11/07/24 11/08/24 11/09/24 23:59 23:59 23:59 23:59 Intake Total 1000 / 1000 3697 / 3697 3594 / 3594 930 / 930 Output Total 250 / 250 843 / 843 592 / 592 1050 / 1050 Balance 750 / 750 2854 / 2854 3002 / 3002 -120 / -120 Weight (kg) 136 kg 133.5 kg 135 kg 136 kg Objective General Appearance: positive No acute distress, Alert and Anxious (This morning patient was anxious, argumentative, and at times mildly aggressive in her demeanor due to her displeasure with being told she is not ready for discharge) Respiratory: positive Other (Due to patient's mood at the time of rounds this morning, including significant agitation, I did not approach her to auscultate her lungs however she clearly does not have any increased work of breathing is able to speak in full sentences, and has minimal tachypnea but is oxygen dependent at 5 L at ) Cardiovascular: positive Regular rate & rhythm Neurologic/Psychiatric: positive Oriented x3; negative Mood/affect nml (agitated) Lab Results 11/09/24 04:32 11/09/24 04:32 Other Labs: Lab Results x24hrs 11/09/24 11/09/24 11/09/24 Range/Units 11:55 08:08 04:32 WBC 17.7 H (4.8-10.8) x10^3/uL RBC 5.55 H (4.20-5.40) 10^6/uL Hgb 14.4 (12.0-16.0) g/dL Hct 49.9 H (37.0-47.0) % MCV 89.9 (81.0-99.0) fL MCH 25.9 L (27.0-31.0) pg MCHC 28.9 L (32.0-36.0) g/dL RDW 16.1 H (12.0-15.0) % Plt Count 342 (130-450) 10^3/uL MPV 8.0 (7.9-10.8) fL Neut # (Auto) Not Reportable Lymph # (Auto) Not Reportable Mcnairy # (Auto) Not Reportable Eos # (Auto) Not Reportable Baso # (Auto) Not Reportable Absolute Nucleated RBC Not Reportable Total Counted 100 Band Neuts % (Manual) 0 (0 - 10) % Abnorm Lymph % (Manual) 0 % Metamyelocytes % 1 H ( - 0) % Myelocytes % 1 H ( - 0) % Nucleated RBC % Not Reportable Neutrophils # (Manual) 9.9 H (1.5-6.6) 10^3/uL Lymphocytes # (Manual) 5.1 H (1.5-3.5) 10^3/uL Monocytes # (Manual) 2.1 H (0.0-1.0) 10^3/uL Eosinophils # (Manual) 0.2 (0-0.7) 10^3/uL Basophils # (Manual) 0.0 (0-0.1) 10^3/uL Differential Comment MANUAL DIFFERENTIAL WBC Morphology NORMAL APPEARANCE (NORMAL) Platelet Estimate NORMAL (130-450,000) (NORMAL) Platelet Morphology NORMAL APPEARANCE (NORMAL) RBC Morph Micro Appear NORMAL APPEARANCE (NORMAL) VBG pH 7.447 H (7.31-7.41) Ionized Calcium 1.16 (1.09-1.30) mmol/L Sodium 140 (135-145) mmol/L Potassium 4.4 (3.5-4.5) mmol/L Chloride 98 L (101-111) mmol/L Carbon Dioxide 35 H (21-32) mmol/L Anion Gap 7.0 (6-13) BUN 32 H (6-20) mg/dL Creatinine 0.8 (0.6-1.3) mg/dL Estimated GFR (MDRD) 74 L (>89) Glucose 113 H (74-104) mg/dL POC Whole Bld Glucose 173 112 (70-100) mg/dL Calcium 9.6 (8.5-10.3) mg/dL Phosphorus 4.0 (2.5-5.0) mg/dL Magnesium 2.6 H (1.7-2.3) mg/dL 11/08/24 11/08/24 Range/Units 20:50 16:36 WBC (4.8-10.8) x10^3/uL RBC (4.20-5.40) 10^6/uL Hgb (12.0-16.0) g/dL Hct (37.0-47.0) % MCV (81.0-99.0) fL MCH (27.0-31.0) pg MCHC (32.0-36.0) g/dL RDW (12.0-15.0) % Plt Count (130-450) 10^3/uL MPV (7.9-10.8) fL Neut # (Auto) Lymph # (Auto) Mcnairy # (Auto) Eos # (Auto) Baso # (Auto) Absolute Nucleated RBC Total Counted Band Neuts % (Manual) (0 - 10) % Abnorm Lymph % (Manual) % Metamyelocytes % ( - 0) % Myelocytes % ( - 0) % Nucleated RBC % Neutrophils # (Manual) (1.5-6.6) 10^3/uL Lymphocytes # (Manual) (1.5-3.5) 10^3/uL Monocytes # (Manual) (0.0-1.0) 10^3/uL Eosinophils # (Manual) (0-0.7) 10^3/uL Basophils # (Manual) (0-0.1) 10^3/uL Differential Comment WBC Morphology (NORMAL) Platelet Estimate (NORMAL) Platelet Morphology (NORMAL) RBC Morph Micro Appear (NORMAL) VBG pH (7.31-7.41) Ionized Calcium (1.09-1.30) mmol/L Sodium (135-145) mmol/L Potassium (3.5-4.5) mmol/L Chloride (101-111) mmol/L Carbon Dioxide (21-32) mmol/L Anion Gap (6-13) BUN (6-20) mg/dL Creatinine (0.6-1.3) mg/dL Estimated GFR (MDRD) (>89) Glucose (74-104) mg/dL POC Whole Bld Glucose 241 116 (70-100) mg/dL Calcium (8.5-10.3) mg/dL Phosphorus (2.5-5.0) mg/dL Magnesium (1.7-2.3) mg/dL Assessment/Plan Problem List (1) Acute and chronic respiratory failure with hypercapnia: Impression: * Patient was successfully extubated 11/08/24 * Patient was able to titrate down to 3 L yesterday however she is back up to 5 L today * We have tried 1 dose of Lasix to promote diuresis, and added Mucinex * Will continue to encourage ambulation * Will continue COPD management and wean oxygen as able * Will trial CPAP at night if the patient allows as I do suspect the patient has undiagnosed obstructive sleep apnea and this may be contributing (2) COPD exacerbation: Impression: * As above she has been successfully extubated and is doing well * Will continue to wean oxygen as able * Cont prednisone 60 mg QD * Continue azithromycin for COPD exacerbation as there is no apparent pneumonia on chest x-ray * I have also counseled her extensively on the importance of tobacco cessation (3) UTI (urinary tract infection): Impression: * Urine Cx shows no growth * It is unclear if these urine culture was collected after antibiotics were started thus creating a negative urine culture but in any case she is already had 2 of 3 doses of ceftriaxone * Will continue ceftriaxone until tomorrow then discontinue (4) Diabetes: Impression: * Blood sugar is well-controlled * Continue insulin sliding scale and initiate diabetic diet
[2024-11-09] MEDS: traZODone 50 MG TABLET PO SCH (20:51)
[2024-11-10 05:15] LABS: BASOPHILS % (AUTO) 0.5 %; EOSINOPHILS % (AUTO) 0.3 %; HCT - HEMATOCRIT 47.1 % (37.0-47.0); HGB - HEMOGLOBIN 14.2 g/dL (12.0-16.0); LYMPHOCYTES % (AUTO) 24.5 %; MEAN CORPUSCULAR HEMOGLOBIN 26.5 pg (27.0-31.0); MEAN CORPUSCULAR HGB CONC 30.1 g/dL (32.0-36.0); MEAN PLATELET VOLUME 7.8 fL (7.9-10.8); MONOCYTES % (AUTO) 9.3 %; NEUTROPHILS % (AUTO) 59.6 %; PLT - PLATELET COUNT 282 10^3/uL (130-450); RED BLOOD COUNT 5.35 10^6/uL (4.20-5.40); RED CELL DISTRIBUTION WIDTH 15.7 % (12.0-15.0); WHITE BLOOD COUNT 11.9 x10^3/uL (4.8-10.8)
[2024-11-10 05:18] LABS: ABNORMAL LYMPHS % (MANUAL) 0 %; BAND NEUTROPHILS % (MANUAL) 0 %
[2024-11-10 05:34] LABS: LYMPHOCYTES % (MANUAL) 25 %; MONOCYTES # (MANUAL) 1.4 10^3/uL (0.0-1.0); MYELOCYTES % (MANUAL) 2 %; NEUTROPHILS # (MANUAL) 7.3 10^3/uL (1.5-6.6)
[2024-11-10 05:35] LABS: DIFFERENTIAL COMMENT MANUAL DIFFERENTIAL; PLATELET ESTIMATE, MANUAL NORMAL (130-450,000) (NORMAL); PLATELET MORPHOLOGY NORMAL APPEARANCE (NORMAL); RBC MORPHOLOGY (MULTIPLE) NORMAL APPEARANCE (NORMAL); WBC MORPHOLOGY (MULTIPLE) NORMAL APPEARANCE (NORMAL)
[2024-11-10 05:37] LABS: CALCIUM 9.6 mg/dL (8.5-10.3); CREATININE 0.7 mg/dL (0.6-1.3); POTASSIUM 4.4 mmol/L (3.5-4.5)
--- NOTE | 2024-11-10 10:20 | Discharge Summary ---
Discharge Summary Admit Date: 11/06/24 Discharge Date: 11/10/24 Discharging Provider: Dr Thiago Wheatley MD Primary Care Provider: Pina Ho DO Code Status: Attempt Resuscitation DIAGNOSES Admission Diagnoses: Acute on chronic respiratory failure with hypercapnia and hypoxia COPD exacerbation UTI Diabetes Discharge Diagnoses with Status of Each Condition: Acute on chronic respiratory failure with hypercapnia and hypoxia - Improved COPD exacerbation - Improved UTI - Treated Diabetes - Improved HPI History of Present Illness: 59-year-old female history of COPD, Diabetes who still actively smokes presented by ambulance already intubated. She has been having dyspnea x 2 to 3 days. EMS attempted nebulizer treatment in the field, with no effect so she was intubated in the field. EMS states that she reported no fevers or recent illness. She has a smoking history as high as 2 packs a day. In the ER, chest x-ray confirmed tube placement with a ET tube 3.5 cm above the franco. It also showed patchy diffuse bilateral pulmonary opacities. She has had copious secretions through her ET tube per RT. Lab work revealed hyponatremia at 130, elevated BNP at 683, WBC 10.5. UA indicative of UTI. ABG 7.4 3/55/259/30 6.5 on ventilator, rate 16, PC 30, FiO2 100, PEEP 8. Hospitalist was contacted for admission for Acute on chronic hypercapnic respiratory failure requiring intubation and ventilation. HOSPITAL COURSE Hospital Course: Patient was admitted to the ICU with acute respiratory failure intubated on a ventilator. She remained intubated overnight in the ICU however by the following morning her vent settings had been weaned such that she was able to successfully be extubated by the following morning. After extubation, she was immediately alert and oriented and was placed on nasal cannula and doing well. By the first evening she was down to 2 to 3 L by nasal cannula but the next morning was up to 5 L. This led to continued weaning with IV Solu-Medrol, scheduled nebulizer treatments, until she was eventually able to wean down to a 1 L oxygen requirement ALLERGIES Allergies Allergy/AdvReac Type Severity Reaction Status Date / Time No Known Drug Allergies Allergy Verified 11/06/24 19:53 MEDICATIONS Ambulatory Orders Medication Instructions Recorded Confirmed divalproex 250 mg tablet,extended 250 mg PO QPM 11/07/24 release 24 hr hydrochlorothiazide 25 mg tablet 25 mg PO QPM 12/30/23 11/07/24 lamotrigine 150 mg tablet 150 mg PO QPM 12/30/2311/07 (Lamictal) lisinopril 10 mg tablet 10 mg PO QPM 12/30/23 metformin 500 mg tablet 1,000 mg PO BIDWM 12/30/23 0 11/07/24 albuterol sulfate 90 mcg/actuation 2 puff inhalation Q 4H PRN 11/07/24 11/07/24 aerosol inhaler shortness of breath or wheez ing citalopram 40 mg tablet 40 mg PO QPM 11/07/24 divalproex 500 mg tablet,extended 500 mg PO QPM 11/07/24 release 24 hr gabapentin 300 mg capsule 300 mg PO BID PRN pain 11/0711/07/24 glipizide 10 mg tablet, extended 10 mg PO QPM 11/07/24 11/07/24 release 24 hr tolterodine 2 mg capsule,extended 2 mg PO QPM 11/07/24 11/07/24 release 24 hr fluticasone 250 mcg-salmeterol 50 1 inh inhalation BID #60 ea 11/10/24 mcg/dose blistr powdr for inhalation (Advair Diskus) guaifenesin 600 mg tablet, 1,200 mg (2 x 600 mg) PO BI D 7 11/10/24 extended release 12 hr (Mucinex) days #28 tabs nicotine 21 mg/24 hr daily 1 patch topical DAILY 7 day s #7 ea 11/10/24 transdermal patch PHYSICAL EXAM AT DISCHARGE Vital Signs: Vital Signs x48h Temp Pulse Pulse Pulse Resp BP BP 11/10/24 11:29 36.5 C 78 18 150/84 H 11/10/24 10:54 82 21 11/10/24 10:01 11/10/24 10:00 11/10/24 09:00 11/10/24 08:23 36.5 C 79 16 146/72 H 11/10/24 07:09 11/10/24 07:09 84 22 11/10/24 05:00 36.7 C 82 20 142/69 H Pulse Ox O2 Flow Rate 11/10/24 11:29 88 L 3 11/10/24 10:54 11/10/24 10:01 3 11/10/24 10:00 87 L 2 11/10/24 09:00 90 L 2 11/10/24 08:23 90 L 3.5 11/10/24 07:09 3 11/10/24 07:09 11/10/24 05:00 92 3.5 General Appearance: positive No acute distress and Alert Respiratory: positive No respiratory distress and Wheezes Cardiovascular: positive Regular rate & rhythm, No murmur and No gallop Abdomen: positive Non-tender, No organomegaly, Nml bowel sounds and No distention Skin: positive Color nml Extremities: positive Nml appearance Neurologic/Psychiatric: positive Oriented x3, CN's nml (2-12) and Motor nml LABS 11/10/24 04:59 11/10/24 04:59 DIAGNOSTIC IMAGING Diagnostic Imaging Results: Final report reviewed SEPSIS Current Stage of Sepsis: Ruled out Sepsis Criteria: Suspected or Documented TIME SPENT Time Spent in Discharge (Minutes): 63 Discharge Plan Discharge Patient Disposition: 50 Hospice/Home DC/Xfer Condition: Serious Medically Cleared Date:: 11/10/24 Prescriptions: New guaifenesin [Mucinex] 600 mg Tablet Extended Release 12hr 1,200 mg PO BID 7 Days Qty: 28 0RF nicotine 21 mg/24 hr Patch 24 Hour 1 patch topical DAILY 7 Days Qty: 7 0RF fluticasone propion-salmeterol [Advair Diskus] 250-50 mcg/dose blister with device 1 inh inhalation BID Qty: 60 1RF Continued divalproex 250 MG tablet extended release 24 hr 250 mg PO QPM Rx Instructions: TAKE 1 TABLET BY MOUTH ONCE DAILY TAKE IN ADDITION TO 500MG FOR A TOTAL DAILY DOSE OF 750MG metformin 500 MG tablet 1,000 mg PO BIDWM Patient Comments: TAKE 2 TABLETS BY MOUTH TWICE DAILY hydrochlorothiazide 25 MG tablet 25 mg PO QPM Patient Comments: TAKE 1 TABLET BY MOUTH IN THE EVENING lamotrigine [Lamictal] 150 MG tablet 150 mg PO QPM Patient Comments: TAKE 1 TABLET BY MOUTH IN THE EVENING lisinopril 10 MG tablet 10 mg PO QPM Patient Comments: TAKE 1 TABLET BY MOUTH ONCE DAILY FOR BLOOD PRESSURE citalopram 40 mg tablet 40 mg PO QPM Patient Comments: TAKE 1 TABLET BY MOUTH IN THE EVENING divalproex 500 mg tablet extended release 24 hr 500 mg PO QPM Rx Instructions: TAKE 1 TABLET BY MOUTH ONCE DAILY TAKE IN ADDITION TO 500MG FOR A TOTAL DAILY DOSE OF 750MG glipizide 10 mg tablet extended release 24hr 10 mg PO QPM Patient Comments: TAKE 1 TABLET BY MOUTH ONCE DAILY tolterodine 2 mg capsule,extended release 24hr 2 mg PO QPM Patient Comments: TAKE 1 CAPSULE BY MOUTH ONCE DAILY gabapentin 300 mg capsule 300 mg PO BID PRN (Reason: pain) albuterol sulfate 90 mcg/actuation HFA aerosol inhaler 2 puff INHALATION Q4H PRN (Reason: shortness of breath or wheezing) Patient Comments: INHALE 1 TO 2 PUFFS BY MOUTH EVERY 4 TO 6 HOURS NEEDED FOR SHORTNESS OF BREATH OR WHEEZING. Print Language: Kiswahili Stand Alone Forms: PCP List Follow-up Care: PINA HO DO [Primary Care Provider] -
[2024-11-10 16:18] VITALS: BP 155/86; TEMP 97.9; O2SAT 88
== END 2024-11-10 15:50 | disposition hospice, home (50) | DRG 208 ==
LOC: EDSEX → ED 19:45 → ICU 21:42 → MS2 11-09 23:51
PROVIDERS: ADMIT Nurse Practitioner Acute Care; ATTEND Nurse Practitioner Acute Care
DX: J96.21 Acute and chronic respiratory failure with hypoxia; F17.210 Nicotine dependence, cigarettes, uncomplicated; Z79.84 Long term (current) use of oral hypoglycemic drugs; E87.1 Hypo-osmolality and hyponatremia; J96.22 Acute and chronic respiratory failure with hypercapnia; J44.1 Chronic obstructive pulmonary disease with (acute) exacerbation; E11.9 Type 2 diabetes mellitus without complications; G47.33 Obstructive sleep apnea (adult) (pediatric)